=== PATIENT | female | born 1970 | race Caucasian/White ===

== ENCOUNTER 2018-01-23 07:42 | Emergency (ER) | payer BC, MEDICARE ==
[2018-01-23 07:59] VITALS: BP 148/83
--- NOTE | 2018-01-23 08:18 | UC ---
Complaint Female HPI - HPI Summary HPI Summary: DYSURIA X 1 DAY STARTED LAST NIGHT , FEEL LIKE URINATING RAZOR BLADE + LOWE ABDOMINAL PAIN , + CHILLS, NO FEVER, + NAUSEA - History Of Current Complaint Chief Complaint: UCGU Stated Complaint: URINARY Time Seen by Provider: 01/23/18 07:59 Hx Obtained From: Patient Hx Last Menstrual Period: 1999 Onset/Duration: Gradual Onset, Lasting Days - 1, Still Present Timing: Constant Severity Initially: Moderate Severity Currently: Severe Pain Intensity: 5 Character: Sharp, Burning Aggravating Factor(s): Urination Alleviating Factor(s): Nothing Associated Signs And Symptoms: Positive: Nausea. Negative: Fever, Back Pain, Vaginal Bleeding/Discharge, Vaginal Discharge, Vomiting(# Of Episodes =), Genital Swelling, Genital Blisters, Retained Foregin Body (Specify) - Allergies/Home Medications Allergies/Adverse Reactions: Allergies Allergy/AdvReac Type Severity Reaction Status Date / Time pregabalin [From Lyrica] Allergy Intermediate Eyes shake Verified 01/23/18 07:51 Home Medications: Home Medications Lisinopril 5 mg PO DAILY 01/23/18 [History Confirmed 01/23/18] Omeprazole CAP* [Prilosec CAP* 20 MG] 20 mg PO BEDTIME 01/23/18 [History Confirmed 01/23/18] Oxycodone HCl/Acetaminophen [Percocet] 1 tab PO BEDTIME 01/23/18 [History Confirmed 01/23/18] PMH/Surg Hx/FS Hx/Imm Hx Endocrine History: Diabetes Cardiovascular History: Hypertension Respiratory History: Asthma - Surgical History Surgical History: Yes Surgery Procedure, Year, and Place: spinal fusion, hysterectomy; benign facial gland 2010. [employer], gastric sleeve-01/2016 - Family History Known Family History: Positive: Unknown, Hypertension, Diabetes - Social History Alcohol Use: None Substance Use Type: None Smoking Status (MU): Former Smoker When Did the Patient Quit Smoking/Using Tobacco: 2004 - Immunization History Most Recent Influenza Vaccination: current Review of Systems Constitutional: Negative Skin: Negative Eyes: Negative ENT: Negative Respiratory: Negative Cardiovascular: Negative Gastrointestinal: Abdominal Pain, Nausea Genitourinary: Dysuria, Frequency Is Patient Immunocompromised?: No All Other Systems Reviewed And Are Negative: Yes Physical Exam Triage Information Reviewed: Yes Appearance: Well-Appearing, No Pain Distress, Well-Nourished Vital Signs: Initial Vital Signs Temp 98.5 F 01/23/18 07:54 Pulse 97 01/23/18 07:54 Resp 18 01/23/18 07:54 BP 148/83 01/23/18 07:54 Pulse Ox 99 01/23/18 07:54 Vital Signs Reviewed: Yes Eye Exam: Normal Eyes: Positive: Conjunctiva Clear ENT: Positive: Normal ENT inspection, Hearing grossly normal, Pharynx normal Neck: Positive: Supple, Nontender, No Lymphadenopathy Respiratory: Positive: Chest non-tender, Lungs clear, Normal breath sounds Cardiovascular: Positive: RRR, No Murmur, Pulses Normal Abdomen Description: Positive: Nontender, Soft. Negative: CVA Tenderness (R), CVA Tenderness (L), Distended, Guarding Bowel Sounds: Positive: Present Skin Exam: Normal Complaint Female Dx - Differential Dx/Diagnosis Provider Diagnoses: DYSURIA. KIDNEY STONES Discharge - Discharge Plan Condition: Stable Disposition: HOME Prescriptions: Ciprofloxacin TAB* [Cipro 500 MG TAB*] 500 mg PO BID #20 tab Tamsulosin HCl [Flomax] 0.4 mg PO DAILY #10 cap.er.24h Patient Education Materials: Kidney Stones (ED) Referrals: Ken Hernandez MD [Primary Care Provider] - 5 Days Additional Instructions: SYMPTOMS MOST LIKELY DUE TO PASSING A KIDNEY STONES AND NO BLADDER INFECTION WILL NOT GET A CT AT THIS TIME INCREASE FLUID, CIPRO TO PREVENT INFECTION PLEASE GO TO ED IF INCREASE IN ABDOMINAL PAIN , ANY FEVER, FLANK PAIN , VOMITING FOLLOW UP WITH YOUR PCP IN 5 TO 7 DAYS
== END 2018-01-23 08:21 | disposition home or self-care (01) ==
LOC: UCCORT 07:42
DX: R30.0 Dysuria (principal); N20.0 Calculus of kidney; Z87.891 Personal history of nicotine dependence; Z88.8 Allergy status to other drugs, medicaments and biological substances; E11.9 Type 2 diabetes mellitus without complications
CPT/HCPCS: 81003; 99212; G0463

== ENCOUNTER 2018-07-24 06:06 | Day surgery (SDC) | payer BC, MEDICARE ==
[~2018-07-24 06:06] MED LIST: Buffered Lidocaine 0.9% SYRIN* 5 ML/SYR SYRINGE INTRADERM ONE; Dexamethasone TAB* 4 MG PO ONE; DiMENhydriNATE IV* 50 MG/ML VIAL IV PUSH PRN; Famotidine IV* 10 MG/ML 2 ML (20 mg) IV ONE; Morphine INJ* 2 MG/ML 1 ML SYRINGE (TWO MG - NEW SYRINGE VERSION) IV PRN; Naloxone* 0.4 MG/ML 1 ML VIAL IV PRN; Ondansetron TAB* 4 MG PO ONE; PROCHLORPERAZINE INJ 5 MG/ML 2 ML VIAL IV PRN; oxyCODONE/Acetamin 5/325 MG* TAB PO PRN
[2018-07-24] MEDS ORDERED: Heparin VIAL(*) 5000 UNITS/ML VIAL (FIVE THOUSAND) ONE (06:16)
[2018-07-24] MEDS ORDERED: Famotidine IV* 10 MG/ML 2 ML (20 mg) ONE (06:16)
[2018-07-24] MEDS ORDERED: Ondansetron ODT TAB* 4 MG ONE (06:16)
[2018-07-24] MEDS ORDERED: Scopolamine 1.5 mg* PATCH ONE ×2 (06:17→06:39)
[2018-07-24] MEDS ORDERED: Dexamethasone TAB* 4 MG ONE (06:17)
[2018-07-24] MEDS ORDERED: ceFAZolin 2 GM in NS PREMIX(*) 2 GM/100 ML BAG IVPB ONE (06:17)
[2018-07-24] MEDS ORDERED: ceFAZolin 1 GM VIAL(*) ONE (06:51)
[2018-07-24] MEDS ORDERED: Gentamicin ADULT (*) 40 MG/ML VIAL ONE (06:51)
[2018-07-24] MEDS ORDERED: Bacitracin IV* 50,000 UNITS INJ ONE (06:52)
[2018-07-24] MEDS ORDERED: Scopolamine 1.5 mg* PATCH TRANSDERM SCH (07:00)
[2018-07-24] MEDS ORDERED: KETAMINE HCL* 50 MG/ML 10 ML VIAL ONE (07:22)
[2018-07-24] MEDS ORDERED: Midazolam* 1 MG/ML 5 ML VIAL (5 MG) ONE (07:22)
[2018-07-24] MEDS ORDERED: fentaNYL* 50 MCG/ML 2 ML VIAL (100 MCG VIAL) ONE ×3 (07:22→12:04)
[2018-07-24] MEDS ORDERED: Morphine VIAL* 10 MG/ML 1 ML VIAL ONE (07:52)
[2018-07-24] MEDS ORDERED: Povidone Iodine 5% OPTH* 30 ML BTL ONE ×2 (07:54→08:42)
[2018-07-24] MEDS ORDERED: Propofol* 10 MG/ML 20 ML BTL IV PUSH ONE (11:09)
[2018-07-24] MEDS ORDERED: Lidocaine 2% PF * 5 ML VIAL ONE ×2 (11:09→11:58)
[2018-07-24] MEDS ORDERED: PROCHLORPERAZINE INJ 5 MG/ML 2 ML VIAL ONE ×2 (11:09→13:10)
[2018-07-24] MEDS: fentaNYL* 50 MCG/ML 2 ML VIAL (100 MCG VIAL) IV PRN ×3 (12:06→12:46)
[2018-07-24] MEDS ORDERED: oxyCODONE/Acetamin 5/325 MG* TAB ONE (12:48)
[2018-07-24 13:36] VITALS: BP 135/80
== END 2018-07-24 14:08 | disposition home or self-care (01) ==
LOC: OR 06:06
PROVIDERS: ATTEND Plastic Surgery
DX: Z41.1 Encounter for cosmetic surgery (principal); N64.81 Ptosis of breast; E11.9 Type 2 diabetes mellitus without complications; I10 Essential (primary) hypertension; J45.909 Unspecified asthma, uncomplicated; Z86.718 Personal history of other venous thrombosis and embolism; Z87.891 Personal history of nicotine dependence; E78.5 Hyperlipidemia, unspecified
CPT/HCPCS: A9270-GY; C1789; J0690; J0780; J1580; J1644; J2250; J2270; J2704; J3010; J8540

== ENCOUNTER 2019-02-07 07:04 | Emergency (ER) | payer BC, MEDICARE ==
--- OUTSIDE RECORDS SUMMARY | 2019-02-07 07:13 | XMS REPORT | Continuity of Care Document ---
:1970 External Reference #:[id number] Author Name Ken Hernandez M.D. Address [address] [facility] [address] [place] [address] Care Team Providers Name Role Phone Ken Hernandez M.D. 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 [address] [place] [address] Advance Directives Description No Information Available Problems Date Description Provider Status Onset: 10/14/2015 Essential hypertension Ken Hernandez M.D. Active Onset: 10/14/2015 Atopic dermatitis Ken Hernandez M.D. Active Onset: 10/14/2015 Degeneration of lumbosacral Ken Hernandez M.D. Active intervertebral disc Onset: 10/14/2015 Allergic rhinitis Ken Hernandez M.D. Active Onset: 10/14/2015 Low back pain Ken Hernandez M.D. Active Onset: 10/14/2015 Gastroesophageal reflux disease Ken Hernandez M.D. Active Onset: 10/14/2015 Mixed hyperlipidemia Ken Hernandez M.D. Active Onset: 10/14/2015 Asthma without status asthmaticus Ken Hernandez M.D. Active Onset: 10/14/2015 Indigestion Ken Hernandez M.D. Active Onset: 10/14/2015 Type II diabetes mellitus uncontrolled Ken Hernandez M.D. Active Family History Date Family Member(s) Observation Comments Father due to Suicide () - AGE 52 Mother 67 Mother Colon Cancer First Daughter 28 First Daughter No Current Problems Second Daughter 20 Second Daughter No Current Problems First Brother 44 First Brother No Current Problems Second Brother 47 Second Brother No Current Problems Third Brother 48 Third Brother Skin Cancer Social History Type Date Description Comments Sex Unknown Marital Status Legal Status: ETOH Use Denies alcohol use Tobacco Use Start: Unknown End: Unknown Patient is a former smoker Smoking Status Reviewed: 08/12/17 Patient is a former smoker Allergies, Adverse Reactions, Alerts Date Description Reaction Status Severity Comments 10/14/2015 Lyrica Active 10/14/2015 Metformin Active Medications Medication Date Status Form Strength Qnty SIG Indications Ordering Provider Tamiflu 12/29/ Active Capsules 75mg 10caps 1 tab by J11.89 David2018 mouth Ken Chavez, twice a M.D. day x 5 days Proair HFA 12/29/ Active Aerosol 108(90Base 17gm inhale 2 R06.02 David, 2018 ) mcg/Act puffs by Ken Chavez, mouth M.D. every 4 hours if needed Azithromycin 12/29/ Active Tablets 500mg 10tabs 1 tab by J18.0 David2018 mouth Ken Chavez, every day M.D. x 10 days Lisinopril 10/01/ Active Tablets 5mg 90tabs 1 by I10 David, 2016 mouth Ken Chavez, every day M.D. Womens Daily 12/16/ Active Tablets 90tabs 1 by Z98.84 David, Formula/Folic 2015 mouth Ken Chavez, Acid/Calcium/Ir every day M.D. on Freestyle Lite 09/17/ Active Strips 100uni Use E11.65 David, Glucose Test 2015 ts bid-tid Ken Chavez, Strips M.D. Omeprazole 06/04/ Active Capsules 20mg 90caps take 1 K21.0 David, 2015 capsule Ken Chavez, by mouth M.D. every day Oxycodone-Aceta 01/11/ Active Tablets 10-325mg 90tabs 1 tab by M79.605 David minophen 2015 mouth Ken Chavez, three M.D. times a day as needed M51.37 M54.5 Cipro 08/28/20 Hx Tablets 500mg 20tabs 1 tab by mouth Ken Hernandez 18 - twice a day M., M.D. 09/07/20 18 Azithromycin 04/04/20 Hx Tablets 500mg 5tabs 1 tab by mouth E11.65 Ken Hernandez 18 - every day M., M.D. 04/09/20 18 Azithromycin 12/10/19 Hx Tablets 500mg 5tabs 1 tab by mouth E11.65 Ken Hernandez 18 - every day M., M.D. 12/14/19 18 Azithromycin 05/29/20 Hx Tablets 500mg 5tabs 1 tab by mouth E11.65 Ken Hernandez 17 - every day M., M.D. 06/02/20 17 Amoxicillin 02/06/20 Hx Tablets 500mg 40tabs 2 by mouth twice Ken eHrnandez 17 - a day M., M.D. 02/15/20 17 Azithromycin 12/12/19 Hx Tablets 250mg 6tabs take two tablets J01.80 Ken Hernandez 17 - by mouth as one M., M.D. 12/17/19 dose on the first 17 day then take one daily thereafter x 4 days Omeprazole 06/04/20 Hx Capsules 20mg 180caps 1 by mouth every K30 Ken Hernandez 16 - day M., M.D. 06/04/20 16 K21.0 Fusion 02/17/2016 - Hx Packet 7-0.25-50-5mg 1 by Z98.84 [facility] Sprinkles 09/17/2016 mouth Ahmad M., every day M.D. Doxycycline 01/12/2016 - Hx Capsules 100mg 20ca 1 cap by David, Hyclate 01/22/2016 ps mouth Ahmad M., twice a M.D. day Amoxicillin 11/24/2015 - Hx Tablets 500mg 40ta 2 by [facility], 12/04/2015 bs mouth Ahmad M., twice a M.D. day Vitamin D3 10/24/2015 - Hx Capsules 1000Unit 90ca 1 by E55.9 [facility], 02/17/2016 ps mouth Ahmad M., every day M.D. Phentermine HCL 10/24/2015 - Hx Capsules 30mg 30ca 1 by E66.01 [facility], 11/24/2015 ps mouth Ahmad M., every day M.D. R53.83 Novolog Mix 10/14/2015 - Hx Supn (70-30)100Unit/ML 30ml 20U SQ In E11.65 Daivd, 70/30 02/17/2016 Am And 10 Ahmad Prefilled U SQ In PM Jeffrey Chavez M.D. Novolog Flex 10/14/2015 - Hx 100uni use as E11.65 David, Pen [place] 02/17/2016 ts directed ( Ahmad 31 G) Pamela Chavez Omeprazole - Hx Capsules 20mg 180cap 1 by mouth K30 [facility], 06/04/2016 DR calles every day Ken Chavez M.D. K21.0 Lisinopril - 02/17/2016 Hx Tablets 10mg 1 by mouth every day I10 Unknown E11.65 Oxycodone-Acetaminophen - Hx Tablets 10-325mg take 1-2 M79.605 Unknown 01/12/2016 tablets four times a day M51.37 M54.5 Lidocaine-Prilocaine - Hx Cream 2.5-2.5% L81.8 Unknown 02/10/2016 Bydureon - Hx Pen 2mg Unknown 10/11/2015 Tramadol HCL - Hx Tablets 50mg take 1 Unknown 10/11/2015 tablet by mouth every 4 to 6 hours if needed for pain Phentermine HCL - Hx Tablets 37.5mg Unknown 10/11/2015 Omeprazole - Hx Capsules DR 40mg take 1 Unknown 10/11/2015 capsule once daily Cyclobenzaprine HCL - Hx Tablets 5mg take 1 to Unknown 10/11/2015 2 tablets three times a day (DO Not Drive For AT Least 3 Crystal Naproxen - Hx Tablets 375mg take 1 Unknown 10/11/2015 tablet three times a day if needed for pain -Take With Food Azithromycin - Hx Tablets 250mg take 2 Unknown 10/11/2015 tablets on day 1 then 1 tablet on days 2 through 5 Januvia - Hx Tablets 100mg take 1 Unknown 10/11/2015 tablet by mouth once daily Victoza - Hx Solution 18mg/3ML Unknown 10/11/2015 Pen-Inject Immunizations CPT Code Status Date Vaccine Lot # [id number] Given 07/25/2017 Flu Vaccine [id number] Vital Signs Date Vital Result Comment 01/22/2019 12:00pm BP Systolic 118 mmHg BP Diastolic 70 mmHg Height 60 inches 5'0" Weight 176.00 lb BMI (Body Mass Index) 34.4 kg/m2 Heart Rate 93 /min Respiratory Rate 16 /min 12/29/2018 11:27am BP Systolic 134 mmHg BP Diastolic 72 mmHg Height 60 inches 5'0" Weight 177.00 lb BMI (Body Mass Index) 34.6 kg/m2 Heart Rate 102 /min Body Temperature 98.4 F Respiratory Rate 16 /min 12/09/2018 9:52am BP Systolic 124 mmHg BP Diastolic 72 mmHg Height 60 inches 5'0" Weight 173.00 lb BMI (Body Mass Index) 33.8 kg/m2 Heart Rate 108 /min Respiratory Rate 16 /min 10/30/2018 9:00am BP Systolic 126 mmHg BP Diastolic 70 mmHg Height 60 inches 5'0" Weight 174.00 lb BMI (Body Mass Index) 34.0 kg/m2 Heart Rate 94 /min Respiratory Rate 16 /min 09/30/2018 9:30am BP Systolic 110 mmHg BP Diastolic 64 mmHg Height 60 inches 5'0" Weight 170.00 lb BMI (Body Mass Index) 33.2 kg/m2 Heart Rate 89 /min Respiratory Rate 16 /min 08/28/2018 2:42pm BP Systolic 134 mmHg BP Diastolic 82 mmHg Height 60 inches 5'0" Weight 168.00 lb BMI (Body Mass Index) 32.8 kg/m2 Heart Rate 106 /min Respiratory Rate 16 /min 07/29/2018 1:05pm BP Systolic 132 mmHg BP Diastolic 72 mmHg Height 60 inches 5'0" Weight 170.00 lb BMI (Body Mass Index) 33.2 kg/m2 Heart Rate 95 /min Respiratory Rate 16 /min 07/04/2018 8:55am BP Systolic 118 mmHg BP Diastolic 78 mmHg Height 60 inches 5'0" Weight 166.00 lb BMI (Body Mass Index) 32.4 kg/m2 Heart Rate 95 /min Respiratory Rate 16 /min 06/19/2018 8:49am BP Systolic 124 mmHg BP Diastolic 64 mmHg Height 60 inches 5'0" Weight 167.00 lb BMI (Body Mass Index) 32.6 kg/m2 Heart Rate 119 /min Respiratory Rate 16 /min 06/11/2018 8:21am BP Systolic 112 mmHg BP Diastolic 72 mmHg Height 60 inches 5'0" Weight 168.00 lb BMI (Body Mass Index) 32.8 kg/m2 Heart Rate 104 /min Respiratory Rate 16 /min 05/21/2018 8:07am BP Systolic 118 mmHg BP Diastolic 68 mmHg Height 60 inches 5'0" Weight 167.00 lb BMI (Body Mass Index) 32.6 kg/m2 Heart Rate 94 /min Respiratory Rate 16 /min 04/14/2018 10:47am BP Systolic 162 mmHg BP Diastolic 82 mmHg Height 60 inches 5'0" Weight 171.00 lb BMI (Body Mass Index) 33.4 kg/m2 Heart Rate 92 /min Respiratory Rate 18 /min 04/04/2018 10:10am BP Systolic 124 mmHg BP Diastolic 72 mmHg Height 60 inches 5'0" Weight 169.00 lb BMI (Body Mass Index) 33.0 kg/m2 Heart Rate 96 /min Body Temperature 98.0 F Respiratory Rate 18 /min 03/13/2018 1:57pm BP Systolic 110 mmHg BP Diastolic 72 mmHg Height 60 inches 5'0" Weight 168.00 lb BMI (Body Mass Index) 32.8 kg/m2 Heart Rate 87 /min Respiratory Rate 18 /min 02/11/2018 1:00pm BP Systolic 116 mmHg BP Diastolic 68 mmHg Height 60 inches 5'0" Weight 168.00 lb BMI (Body Mass Index) 32.8 kg/m2 Heart Rate 88 /min Respiratory Rate 18 /min 01/09/2018 2:06pm BP Systolic 120 mmHg BP Diastolic 70 mmHg Height 60 inches 5'0" Weight 172.00 lb BMI (Body Mass Index) 33.6 kg/m2 Heart Rate 94 /min Respiratory Rate 18 /min 12/10/2017 9:02am BP Systolic 120 mmHg BP Diastolic 74 mmHg Height 60 inches 5'0" Weight 174.00 lb BMI (Body Mass Index) 34.0 kg/m2 Heart Rate 101 /min Body Temperature 97.7 F Respiratory Rate 18 /min 11/07/2017 10:20am BP Systolic 126 mmHg BP Diastolic 70 mmHg Height 60 inches 5'0" Weight 170.00 lb BMI (Body Mass Index) 33.2 kg/m2 Heart Rate 106 /min 10/10/2017 8:57am BP Systolic 110 mmHg BP Diastolic 72 mmHg Height 60 inches 5'0" Weight 172.00 lb BMI (Body Mass Index) 33.6 kg/m2 Heart Rate 88 /min Respiratory Rate 16 /min 10/01/2017 2:04pm BP Systolic 160 mmHg BP Diastolic 100 mmHg BP Systolic Recheck 138 mmHg BP Diastolic Recheck 88 mmHg Height 60 inches 5'0" Weight 175.00 lb BMI (Body Mass Index) 34.2 kg/m2 Heart Rate 106 /min Respiratory Rate 18 /min 09/26/2017 8:39am BP Systolic 118 mmHg BP Diastolic 68 mmHg Height 60 inches 5'0" Weight 175.00 lb BMI (Body Mass Index) 34.2 kg/m2 Heart Rate 97 /min Respiratory Rate 18 /min 09/05/2017 10:33am BP Systolic 124 mmHg BP Diastolic 88 mmHg Height 60 inches 5'0" Weight 173.00 lb BMI (Body Mass Index) 33.8 kg/m2 Heart Rate 97 /min Respiratory Rate 18 /min 08/12/2017 8:53am BP Systolic 124 mmHg BP Diastolic 72 mmHg Height 60 inches 5'0" Weight 171.00 lb BMI (Body Mass Index) 33.4 kg/m2 Heart Rate 96 /min Respiratory Rate 16 /min 07/25/2017 8:46am BP Systolic 110 mmHg BP Diastolic 68 mmHg Height 60 inches 5'0" Weight 172.00 lb BMI (Body Mass Index) 33.6 kg/m2 Heart Rate 73 /min Respiratory Rate 16 /min 07/11/2017 3:21pm BP Systolic 126 mmHg BP Diastolic 70 mmHg Height 60 inches 5'0" Weight 175.00 lb BMI (Body Mass Index) 34.2 kg/m2 Heart Rate 105 /min Respiratory Rate 18 /min 06/27/2017 9:44am BP Systolic 118 mmHg BP Diastolic 68 mmHg Height 60 inches 5'0" Weight 172.00 lb BMI (Body Mass Index) 33.6 kg/m2 Heart Rate 99 /min Respiratory Rate 16 /min 06/13/2017 9:46am BP Systolic 128 mmHg BP Diastolic 68 mmHg Height 60 inches 5'0" Weight 176.00 lb BMI (Body Mass Index) 34.4 kg/m2 Heart Rate 99 /min Respiratory Rate 16 /min 05/29/2017 1:59pm BP Systolic 104 mmHg BP Diastolic 60 mmHg Height 60 inches 5'0" Weight 174.00 lb BMI (Body Mass Index) 34.0 kg/m2 Heart Rate 70 /min Body Temperature 97.4 F Respiratory Rate 16 /min 05/15/2017 9:42am BP Systolic 118 mmHg BP Diastolic 70 mmHg Height 60 inches 5'0" Weight 176.00 lb BMI (Body Mass Index) 34.4 kg/m2 Heart Rate 89 /min Respiratory Rate 16 /min 04/29/2017 3:11pm BP Systolic 116 mmHg BP Diastolic 64 mmHg Height 60 inches 5'0" Weight 174.00 lb BMI (Body Mass Index) 34.0 kg/m2 Heart Rate 104 /min Respiratory Rate 16 /min 03/12/2017 8:53am BP Systolic 122 mmHg BP Diastolic 64 mmHg Height 60 inches 5'0" Weight 172.00 lb BMI (Body Mass Index) 33.6 kg/m2 Heart Rate 92 /min Respiratory Rate 18 /min 02/20/2017 9:05am BP Systolic 118 mmHg BP Diastolic 72 mmHg Height 60 inches 5'0" Weight 171.00 lb BMI (Body Mass Index) 33.4 kg/m2 Heart Rate 88 /min Respiratory Rate 18 /min 02/05/2017 3:13pm BP Systolic 126 mmHg BP Diastolic 78 mmHg Height 60 inches 5'0" Weight 169.00 lb BMI (Body Mass Index) 33.0 kg/m2 Heart Rate 128 /min Body Temperature 97.4 F Respiratory Rate 18 /min 01/25/2017 1:53pm BP Systolic 124 mmHg BP Diastolic 78 mmHg Height 60 inches 5'0" Weight 172.00 lb BMI (Body Mass Index) 33.6 kg/m2 Heart Rate 102 /min Respiratory Rate 16 /min 12/12/2016 9:59am BP Systolic 118 mmHg BP Diastolic 82 mmHg Height 60 inches 5'0" Weight 168.00 lb BMI (Body Mass Index) 32.8 kg/m2 Heart Rate 100 /min Respiratory Rate 16 /min 10/26/2016 9:58am BP Systolic 134 mmHg BP Diastolic 84 mmHg Height 60 inches 5'0" Weight 167.00 lb BMI (Body Mass Index) 32.6 kg/m2 Heart Rate 105 /min Respiratory Rate 20 /min 09/24/2016 8:49am BP Systolic 128 mmHg BP Diastolic 72 mmHg Height 60 inches 5'0" Weight 164.00 lb BMI (Body Mass Index) 32.0 kg/m2 Heart Rate 105 /min Respiratory Rate 18 /min 09/17/2016 9:45am BP Systolic 118 mmHg BP Diastolic 78 mmHg Height 60 inches 5'0" Weight 162.00 lb BMI (Body Mass Index) 31.6 kg/m2 Heart Rate 87 /min Respiratory Rate 18 /min 08/02/2016 2:42pm BP Systolic 106 mmHg BP Diastolic 68 mmHg Height 60 inches 5'0" Weight 159.00 lb BMI (Body Mass Index) 31.0 kg/m2 Heart Rate 97 /min Respiratory Rate 22 /min 06/21/2016 11:31am BP Systolic 118 mmHg BP Diastolic 66 mmHg Height 60 inches 5'0" Weight 162.00 lb BMI (Body Mass Index) 31.6 kg/m2 Heart Rate 82 /min Respiratory Rate 20 /min 05/08/2016 3:07pm BP Systolic 118 mmHg BP Diastolic 64 mmHg Height 60 inches 5'0" Weight 158.00 lb BMI (Body Mass Index) 30.9 kg/m2 Heart Rate 72 /min Respiratory Rate 18 /min 03/20/2016 2:26pm BP Systolic 110 mmHg BP Diastolic 72 mmHg Height 60 inches 5'0" Weight 157.00 lb BMI (Body Mass Index) 30.7 kg/m2 Heart Rate 74 /min Respiratory Rate 20 /min 02/17/2016 9:07am BP Systolic 100 mmHg BP Diastolic 69 mmHg Height 60 inches 5'0" Weight 163.00 lb BMI (Body Mass Index) 31.8 kg/m2 Heart Rate 90 /min Respiratory Rate 18 /min 01/12/2016 1:55pm BP Systolic 136 mmHg BP Diastolic 85 mmHg Height 60 inches 5'0" Weight 186.00 lb BMI (Body Mass Index) 36.3 kg/m2 Heart Rate 104 /min Body Temperature 97.3 F Respiratory Rate 18 /min 11/24/2015 9:00am BP Systolic 125 mmHg BP Diastolic 81 mmHg Height 60 inches 5'0" Weight 183.00 lb BMI (Body Mass Index) 35.7 kg/m2 Heart Rate 109 /min Respiratory Rate 18 /min 10/24/2015 9:39am BP Systolic 127 mmHg BP Diastolic 80 mmHg Height 60 inches 5'0" Weight 184.00 lb BMI (Body Mass Index) 35.9 kg/m2 Heart Rate 91 /min Respiratory Rate 18 /min 10/17/2015 8:49am BP Systolic 130 mmHg BP Diastolic 82 mmHg Height 60 inches 5'0" Weight 185.00 lb BMI (Body Mass Index) 36.1 kg/m2 Heart Rate 101 /min Respiratory Rate 18 /min 10/14/2015 9:44am BP Systolic 141 mmHg BP Diastolic 96 mmHg Height 60 inches 5'0" Weight 184.00 lb BMI (Body Mass Index) 35.9 kg/m2 Heart Rate 94 /min Body Temperature 97.1 F Respiratory Rate 18 /min Results Test Date Facility Test Result H/L Range Note Blood Culture 12/29/2018 [facility] Blood Culture NO GROWTH: FINAL 1, 2 Aerobic <SEE NOTE> Blood Culture Anaerobic NO GROWTH: FINAL <SEE NOTE> 3 Influenza A/B 12/29/2018 [facility] Influenza A POSITIVE Abnormal (Negative ) Antigen Antigen Influenza B Antigen Negative (Negative) 4 Comprehensive Metabolic Panel 12/29/2018 [facility] Glucose 131 mg/dL High 74-106 BUN 6 mg/dL Low 7-18 Creatinine 0.9 mg/dL N 0.6-1.3 Glom Filtration Rate, Estimate >60 mL/min >60 If >60 mL/min >60 5 BUN/Creat 6.6 ratio Sodium 137 mmol/L N 136-145 Potassium 3.8 mmol/L N 3.5-5.1 Chloride 101 mmol/L N 98-107 Carbon Dioxide 25 mmol/L N 21-32 Anion Gap 11 mEq/L N 8-16 Calcium 8.9 mg/dL N 8.5-10.1 Total Protein 7.8 g/dL N 6.4-8.2 Albumin 4.1 g/dL N 3.4-5.0 Globulin 3.7 g/dL N 1.9-4.3 Alb/Glob 1.1 ratio Bilirubin,Total 0.3 mg/dL N 0.2-1.0 Sgot/Ast 27 U/L N 15-37 SGPT/Alt 34 U/L N 12-78 Alkaline Phosphatase 104 U/L N 45-117 Lactic Acid 12/29/2018 [facility] Lactic Acid 1.4 mmol/L N 0.4-1.9 Lab Reflex >2.0 for Sepsis? Y Blood Culture 12/29/2018 [facility] Blood Culture Aerobic NO GROWTH: FINAL < SEE 6 NOTE> Blood Culture Anaerobic NO GROWTH: FINAL <SEE NOTE> 7 Laboratory test 07/24/2018 [facility] Point of Care 109 mg/dL High 70 -100 8 finding Glucose CBC With Diff 07/04/2018 [facility] WBC 7.6 10*3/uL (4.1-11.0) [address] [facility] [facility] (607)- - RBC 4.24 10*6/uL (4.00-5.40) HGB 13.4 g/dL (12.0-16.0) HCT 40.5 % (36.0-47.0) MCV 95.6 fL High (80.0-95.0) MCH 31.7 pg (27.0-32.0) MCHC 33.1 g/dL (32.0-36.0) RDW 12.8 % (10.5-14.5) PLT 240 10*3/uL (150-450) MPV 8.4 fL (7.1-10.7) Neut % 56.5 % (35.0-75.0) Lymph % 36.1 % (16.0-52.0) Price % 5.5 % (0.0-8.0) Eos % 1.2 % (0.0-5.0) Baso % 0.7 % (0.0-4.0) Neut # 4.3 10*3/uL (1.8-7.7) Lymph # 2.7 10*3/uL (1.2-4.8) Price # 0.4 10*3/uL (0.0-0.8) Eos # 0.1 10*3/uL (0.0-0.5) Baso # 0.1 10*3/uL (0.0-0.2) CMP 07/04/2018 [facility] Sodium 139 mmol/L (136-145) [address] [facility] (601)- - Potassium 4.1 mmol/L (3.6-5.2) Chloride 104 mmol/L (100-108) Co2 27 mmol/L (22-31) Anion Gap 8 mmol/L (7-16) Urea Nitrogen 10 mg/dL (7-24) Creatinine 0.87 mg/dL (0.60-1.00) BUN/Creat Ratio 11.5 RATIO (10.0-20.0) Glucose 104 mg/dL High (70-99) Calcium 9.0 mg/dL (8.4-10.2) Total Protein 7.0 g/dL (6.4-8.2) Albumin 4.1 g/dL (3.5-4.6) Globulin 2.9 g/dL (2.7-4.3) Alb/Glob Ratio 1.4 RATIO Alkaline Phosphatase 69 U/L (45-117) Bilirubin,Total 0.6 mg/dL (0.0-1.0) Ast (Sgot) 11 U/L (11-39) Alt (SGPT) 16 U/L (12-78) GFR >60 ml/min/1.73m2 (>59) GFR ( Amer) >60 ml/min/1.73m2 (>59) GFR Interpretation <SEE NOTE> 9 Hemoglobin A1c 07/04/2018 [facility] Hemoglobin A1c @ 6.4 % High (4.0- 6.0) 10 [address] (822)- - Est Average Glucose 137 mg/dL [place] Urine Albumin @ 07/04/2018 [facility] Albumin, Urine 1.03 mg/dL [address] (381)- - Creatinine,Urine 239.00 mg/dL Alb/Creatinine Ratio 4.3 ug/mg (0.0-29.9) Lipid 07/04/2018 [facility] Cholesterol @ 204 mg/dL High (0-200) [address] [facility] (607)- - Triglyceride @ 250 mg/dL High (30-200) HDL Cholesterol @ 40 mg/dL Low (>40) 11 Chol/HDL Ratio 5.1 RATIO 12 LDL Chol (Calc) 114 mg/dL (<130) 13 Laboratory 07/04/2018 [facility] TSH,Ultrasensitive @ 0.692 (0.360- 4.170) test finding 113 [facility] GARCIA mIU/L (607)- - Folate @ 10.9 ng/mL (3.1-17.5) Vitamin B12 @ 372 pg/mL (193-986) Antidepressants Panel 07/04/2018 [facility] Amitriptyline Negative ng/mL N 20 14 By LC/MS/MS Clomipramine Negative ng/mL N 20 Desipramine Negative ng/mL N 20 Doxepin Negative ng/mL N 20 Fluoxetine Negative ng/mL N 20 Imipramine Negative ng/mL N 20 Norclomipramine Negative ng/mL N 20 Nordoxepin Negative ng/mL N 20 Nortriptyline Negative ng/mL N 20 Sertraline Negative ng/mL N 20 Trimipramine Negative ng/mL N 20 15 Urine DRG SCR 07/04/2018 [facility] Amphetamine NEGATIVE N 1000 (12PNL-PM) Barbiturate NEGATIVE N 200 Benzodiazepine NEGATIVE N 200 Buprenorphine NEGATIVE N 15 Cannabinoid NEGATIVE N 50 Cocaine NEGATIVE N 300 Methadone NEGATIVE N 300 Opiate POSITIVE Abnormal 300 Oxycodone POSITIVE Abnormal 300 Phencyclidine NEGATIVE N 25 16 Barbiturates Panel By 07/04/2018 [facility] Butalbital Negative ng/mL N 100 LC/MS/MS Pentobarbital Negative ng/mL N 100 Phenobarbital Negative ng/mL N 100 Secobarbital Negative ng/mL N 100 17 Benzodiazepines 07/04/2018 [facility] 2-Hydroxyethylflurazepam Negative N 10 Panel By LC/MS/MS ng/mL 7-Aminoclonazepam Negative ng/mL N 10 Alprazolam Negative ng/mL N 10 Chlordiazepoxide Negative ng/mL N 10 Clonazepam Negative ng/mL N 10 Desalkylflurazepam Negative ng/mL N 10 Diazepam Negative ng/mL N 10 Lorazepam Negative ng/mL N 10 Midazolam Negative ng/ml N 10 Nordiazepam Negative ng/mL N 10 Alpha-hydroxyalprazolam Negative ng/mL N 10 Alpha-Hydroxymidazolam Negative ng/mL N 10 Alpha-Hydroxytriazolam Negative ng/mL N 10 Oxazepam Negative ng/mL N 10 Prazepam Negative ng/mL N 10 Temazepam Negative ng/mL N 10 18 Buprenorphine Panel By 07/04/2018 [facility] Buprenorphine Negative ng/mL N 5 LC/MS/MS Naloxone Negative ng/mL N 10 Norbuprenorphine Negative ng/mL N 5 19 Methadone Panel By 07/04/2018 [facility] Eddp Negative ng/mL N 10 LC/MS/MS Methadone Negative ng/mL N 10 20 Opiates Panel By 07/04/2018 [facility] 6-Joselyn (Heroin Negative ng/ mL N 5 LC/MS/MS Metabolite) Codeine Negative ng/mL N 50 Hydrocodone Negative ng/mL N 50 Hydromorphone Negative ng/mL N 50 Morphine Negative ng/mL N 50 Norhydrocodone Negative ng/mL N 50 Noroxycodone 1326 Positive Co <SEE NOTE> ng/mL N 50 21 Noroxymorphone 397 Positive Con <SEE NOTE> ng/mL N 50 22 Oxycodone 1254 Positive Co <SEE NOTE> ng/mL N 50 23 Oxymorphone 1085 Positive Co <SEE NOTE> ng/mL N 50 24 Specimen Validity 07/04/2018 [facility] Creatinine, Urine 213 mg/ dL N >20 Panel Color YELLOW N Yellow pH 6.2 N 5.0-8.0 Specific [place] 1.026 N 1.001-1.035 25 Amphetamine Panel By 07/04/2018 [facility] Amphetamine Negative ng/mL N 50 LC/MS/MS Methamphetamine Negative ng/mL N 50 Mdma (Ecstasy) Negative ng/mL N 50 Mda Negative ng/ml N 50 Mdea Negative ng/mL N 50 26 Laboratory test 07/04/2018 [facility] Cocaine Panel By Negative ng/mL N 50 27 finding LC/MS/MS Tramadol Negative ng/mL N 5 28 [id number] Negative ng/mL N 5 29 Gabapentin Negative ng/mL N 100 30 Ethyl Glucuronide 07/04/2018 [facility] Ethyl Glucuronide Negative ng/mL N 500 PDF SEE IMAGE Urine Drug [place] 07/04/2018 [facility] [id number] < pending> Ethyl Glucuronide <pending> CBC Auto Diff 04/14/2018 [facility] White Blood Count 5.9 10^3/uL N 3.5-10.8 Red Blood Count 4.04 10^6/uL N 4.0-5.4 Hemoglobin 12.7 g/dL N 12.0-16.0 Hematocrit 38 % N 35-47 Mean Corpuscular Volume 94 fL N 80-97 Mean Corpuscular Hemoglobin 32 pg High 27-31 Mean Corpuscular HGB Conc 34 g/dL N 31-36 Red Cell Distribution Width 13 % N 10.5-15 Platelet Count 248 10^3/uL N 150-450 Mean Platelet Volume 8.3 um3 N 7.4-10.4 Abs Neutrophils 2.7 10^3/uL N 1.5-7.7 Abs Lymphocytes 2.7 10^3/uL N 1.0-4.8 Abs Monocytes 0.3 10^3/uL N 0-0.8 Abs Eosinophils 0.1 10^3/uL N 0-0.6 Abs Basophils 0 10^3/uL N 0-0.2 Abs Nucleated RBC 0 10^3/uL Granulocyte % 45.2 % N 38-83 Lymphocyte % 46.8 % N 25-47 Monocyte % 5.4 % N 0-7 Eosinophil % 1.9 % N 0-6 Basophil % 0.7 % N 0-2 Nucleated Red Blood Cells % 0.2 Comp Metabolic Panel 04/14/2018 [facility] Sodium 139 mmol/L N 139- 145 Potassium 4.1 mmol/L N 3.5-5.0 Chloride 105 mmol/L N 101-111 Co2 Carbon Dioxide 26 mmol/L N 22-32 Anion Gap 8 mmol/L N 2-11 Glucose 127 mg/dL High 70-100 Blood Urea Nitrogen 7 mg/dL N 6-24 Creatinine 0.81 mg/dL N 0.51-0.95 BUN/Creatinine Ratio 8.6 N 8-20 Calcium 9.5 mg/dL N 8.6-10.3 Total Protein 6.6 g/dL N 6.4-8.9 Albumin 4.3 g/dL N 3.2-5.2 Globulin 2.3 g/dL N 2-4 Albumin/Globulin Ratio 1.9 N 1-3 Total Bilirubin 0.40 mg/dL N 0.2-1.0 Alkaline Phosphatase 59 U/L N 34-104 Alt 12 U/L N 7-52 Ast 16 U/L N 13-39 Egfr Non- 75.5 >60 Egfr 97.1 >60 31 Laboratory test 04/14/2018 [facility] Hemoglobin A1c 6.1 % High 4.0- 5.6 32 finding (Glyco HGB) TSH (Thyroid Stim Horm) 0.33 mcIU/mL Low 0.34-5.60 33 Lipid Profile 04/14/2018 [facility] Triglycerides 295 mg/dL 34 (Trig/Chol/HDL) Cholesterol 204 mg/dL 35 HDL Cholesterol 37.6 mg/dL 36 LDL Cholesterol 107 mg/dL 37 Laboratory test finding 04/14/2018 [facility] Vitamin B12 329 pg/mL N 180-914 38 Vitamin D Total 25(Oh) 33.4 ng/mL N 20-50 39 Uric Acid 5.6 mg/dL N 2.3-6.6 40 Ua RFX Micro & Culture II 03/04/2018 [facility] Urine Color YELLOW Yellow 41 Urine Clarity CLEAR Clear Urine Glucose - Dipstick NEGATIVE mg/dL Negative Urine Bilirubin - Dipstick NEGATIVE Negative Urine Ketone NEGATIVE mg/dL Negative Urine Specific [place] 1.015 N 1.010-1.030 Urine Blood NEGATIVE Negative Urine PH 7.5 N 6.5-7.5 Urine Protein - Dipstick NEGATIVE mg/dL Negative Urine Urobilinogen - Dipstick 0.2 E.U./dL N 0.2-1.0 Urine Nitrite - Dipstick NEGATIVE Negative Urine Leuk Esterase NEGATIVE Negative Source: URINE, CLEAN CAT <SEE NOTE> 42 Basic Metabolic Panel 03/04/2018 [place] Glucose 157 mg/dL High 74-106 BUN 7 mg/dL N 7-18 Creatinine 0.8 mg/dL N 0.6-1.3 Glom Filtration Rate, Estimate >60 mL/min >60 If >60 mL/min >60 43 BUN/Creat 8.7 ratio Sodium 138 mmol/L N 136-145 Potassium 4.0 mmol/L N 3.5-5.1 Chloride 105 mmol/L N 98-107 Carbon Dioxide 22 mmol/L N 21-32 Anion Gap 11 mEq/L N 8-16 Calcium 9.3 mg/dL N 8.5-10.1 Poc Urinalysis 01/23/2018 [facility] Poc Glucose, Urine Negative Negative Poc Bilirubin, Urine 1+ Abnormal Negative Poc Ketone, Urine Negative Negative Poc Specific [place], Urine >=1.030 N 1.010-1.030 Poc Blood, Urine 3+ Abnormal Negative Poc pH, Urine 5.5 N 5-9 Poc Protein, Urine 2+ Abnormal Negative Poc Urobilinogen, Urine 0.2 Negative Poc Nitrite, Urine Negative Negative Poc Leukocytes, Urine Negative Negative Poc Color, Urine Nhung Poc Clarity, Urine Cloudy 44 CBS W/Automated Diff 10/21/2017 [place] White Blood Count 8.9 K/uL N 3.1 -10.7 45 Red Blood Count 4.40 M/uL N 3.90-5.40 Hemoglobin 14.0 gm/dL N 11.6-15.8 Hematocrit 40.7 % N 36.0-46.1 Mean Cell Volume 92.5 fl N 80.9-99.0 Mean Corpuscular HGB 31.8 pg N 25.9-32.7 Mean Corpuscular HGB Conc 34.4 g/dL High 30.8-34.3 Platelet Count 266 K/uL N 155-360 Red Cell Distri Width SD 39.8 fl N 3-47 Red Cell Distri Width %CV 11.9 % N 11.7-14.4 Mean Platelet Volume 9.9 fL N 8.9-12.4 Neut% 40.4 % N 40.4-72.8 Lymph % 52.4 % High 20.0-42.0 Price % 6.0 % N 4.3-13.2 Eo% 0.9 % N 0.0-6.6 Bas% 0.3 % N 0.0-1.1 Neut# 3.60 K/uL N 1.8-7.0 Lymph # 4.66 K/uL High 1.0-4.0 Price # 0.53 K/uL N 0.3-0.9 Eos # 0.08 K/uL N 0.0-0.5 Baso # 0.03 K/uL N 0.0-0.1 Ua RFX Micro & Culture II 10/21/2017 [place] Urine Color STRAW Yellow Urine Clarity CLEAR Clear Urine Glucose - Dipstick NEGATIVE mg/dL Negative Urine Bilirubin - Dipstick NEGATIVE Negative Urine Ketone NEGATIVE mg/dL Negative Urine Specific [place] 1.010 N 1.010-1.030 Urine Blood NEGATIVE Negative Urine PH 7.5 N 6.5-7.5 Urine Protein - Dipstick NEGATIVE mg/dL Negative Urine Urobilinogen - Dipstick 0.2 E.U./dL N 0.2-1.0 Urine Nitrite - Dipstick NEGATIVE Negative Urine Leuk Esterase NEGATIVE Negative Source: URINE, CLEAN CAT <SEE NOTE> 46 CBS W/Automated Diff 10/20/2017 [place] White Blood Count 6.9 K/uL N 3.1 -10.7 47 Red Blood Count 4.40 M/uL N 3.90-5.40 Hemoglobin 14.1 gm/dL N 11.6-15.8 Hematocrit 40.9 % N 36.0-46.1 Mean Cell Volume 93.0 fl N 80.9-99.0 Mean Corpuscular HGB 32.0 pg N 25.9-32.7 Mean Corpuscular HGB Conc 34.5 g/dL High 30.8-34.3 Platelet Count 267 K/uL N 155-360 Red Cell Distri Width SD 39.7 fl N 3-47 Red Cell Distri Width %CV 12.0 % N 11.7-14.4 Mean Platelet Volume 9.6 fL N 8.9-12.4 Neut% 41.7 % N 40.4-72.8 Lymph % 49.1 % High 20.0-42.0 Price % 7.1 % N 4.3-13.2 Eo% 1.7 % N 0.0-6.6 Bas% 0.4 % N 0.0-1.1 Neut# 2.87 K/uL N 1.8-7.0 Lymph # 3.38 K/uL N 1.0-4.0 Price # 0.49 K/uL N 0.3-0.9 Eos # 0.12 K/uL N 0.0-0.5 Baso # 0.03 K/uL N 0.0-0.1 Comprehensive Metabolic Panel 10/20/2017 [place] Glucose 124 mg/dL High 74-106 BUN 11 mg/dL N 7-18 Creatinine 0.8 mg/dL N 0.6-1.3 Glom Filtration Rate, Estimate >60 mL/min >60 If >60 mL/min >60 48 BUN/Creat 13.7 ratio Sodium 140 mmol/L N 136-145 Potassium 3.8 mmol/L N 3.5-5.1 Chloride 108 mmol/L High 98-107 Carbon Dioxide 25 mmol/L N 21-32 Anion Gap 7 mEq/L Low 8-16 Calcium 9.4 mg/dL N 8.5-10.1 Total Protein 7.7 g/dL N 6.4-8.2 Albumin 4.2 g/dL N 3.4-5.0 Globulin 3.5 g/dL N 1.9-4.3 Alb/Glob 1.2 ratio Bilirubin,Total 0.5 mg/dL N 0.2-1.0 Sgot/Ast 12 U/L Low 15-37 49 SGPT/Alt 19 U/L N 12-78 Alkaline Phosphatase 80 U/L N 45-117 Laboratory test finding 10/20/2017 [place] Lipase 168 U/L N 56-289 Ua RFX Micro & Culture II 10/20/2017 [place] Urine Color YELLOW Yellow Urine Clarity CLEAR Clear Urine Glucose - Dipstick NEGATIVE mg/dL Negative Urine Bilirubin - Dipstick NEGATIVE Negative Urine Ketone NEGATIVE mg/dL Negative Urine Specific [place] 1.015 N 1.010-1.030 Urine Blood TRACE Negative Urine PH 6.0 Low 6.5-7.5 Urine Protein - Dipstick NEGATIVE mg/dL Negative Urine Urobilinogen - Dipstick 0.2 E.U./dL N 0.2-1.0 Urine Nitrite - Dipstick NEGATIVE Negative Urine Leuk Esterase NEGATIVE Negative Source: URINE, CLEAN CAT <SEE NOTE> 50 CBC Auto Diff 09/26/2017 [facility] White Blood Count 7.1 10^3/uL N 3.5-10.8 Red Blood Count 4.10 10^6/uL N 4.0-5.4 Hemoglobin 13.0 g/dL N 12.0-16.0 Hematocrit 38 % N 35-47 Mean Corpuscular Volume 93 fL N 80-97 Mean Corpuscular Hemoglobin 32 pg High 27-31 Mean Corpuscular HGB Conc 34 g/dL N 31-36 Red Cell Distribution Width 13 % N 10.5-15 Platelet Count 280 10^3/uL N 150-450 Mean Platelet Volume 8 um3 N 7.4-10.4 Abs Neutrophils 3.4 10^3/uL N 1.5-7.7 Abs Lymphocytes 3.1 10^3/uL N 1.0-4.8 Abs Monocytes 0.4 10^3/uL N 0-0.8 Abs Eosinophils 0.1 10^3/uL N 0-0.6 Abs Basophils 0 10^3/uL N 0-0.2 Abs Nucleated RBC 0 10^3/uL Granulocyte % 47.8 % N 38-83 Lymphocyte % 43.7 % N 25-47 Monocyte % 6.3 % N 1-9 Eosinophil % 1.8 % N 0-6 Basophil % 0.4 % N 0-2 Nucleated Red Blood Cells % 0 Comp Metabolic Panel 09/26/2017 [facility] Sodium 139 mmol/L N 133- 145 Potassium 4.4 mmol/L N 3.5-5.0 Chloride 104 mmol/L N 101-111 Co2 Carbon Dioxide 28 mmol/L N 22-32 Anion Gap 7 mmol/L N 2-11 Glucose 116 mg/dL High 70-100 Blood Urea Nitrogen 12 mg/dL N 6-24 Creatinine 0.79 mg/dL N 0.51-0.95 BUN/Creatinine Ratio 15.2 N 8-20 Calcium 9.5 mg/dL N 8.6-10.3 Total Protein 6.5 g/dL N 6.4-8.9 Albumin 4.3 g/dL N 3.2-5.2 Globulin 2.2 g/dL N 2-4 Albumin/Globulin Ratio 2.0 N 1-3 Total Bilirubin 0.40 mg/dL N 0.2-1.0 Alkaline Phosphatase 58 U/L N 34-104 Alt 10 U/L N 7-52 Ast 12 U/L Low 13-39 Egfr Non- 78.0 >60 Egfr 100.3 >60 51 Laboratory test 09/26/2017 [facility] Hemoglobin A1c 6.0 % High 4.0- 5.6 52 finding (Glyco HGB) Urine Microalbumin 09/26/2017 [facility] Ur Microalbumin < 15.0 Random (mg/L) mg/L Urine Creatinine 255.31 mg/dL Urine Microalbumin/Creatinine TNP ug/mg <31 53 Laboratory test 09/26/2017 [facility] TSH (Thyroid Stim 0.51 mcIU/mL N 0.34-5.60 54 finding Horm) Lipid Profile 09/26/2017 [facility] Triglycerides 326 mg/dL 55 (Trig/Chol/HDL) Cholesterol 215 mg/dL 56 HDL Cholesterol 37.2 mg/dL 57 LDL Cholesterol 113 mg/dL 58 Laboratory test 09/26/2017 [facility] Vitamin D Total 26.5 ng/mL N 20 -50 59 finding 25(Oh) Vitamin B12 276 pg/mL N 180-914 60 Laboratory test 06/13/2017 [facility] Hemoglobin A1c 6.4 % High Less than 61 finding (Glyco HGB) 6.0 CBC Auto Diff 06/13/2017 [facility] White Blood 7.1 N 3.5-10.8 Count 10^3/uL Red Blood Count 4.04 10^6/uL N 4.0-5.4 Hemoglobin 12.8 g/dL N 12.0-16.0 Hematocrit 38 % N 35-47 Mean Corpuscular Volume 95 fL N 80-97 Mean Corpuscular Hemoglobin 32 pg High 27-31 Mean Corpuscular HGB Conc 34 g/dL N 31-36 Red Cell Distribution Width 13 % N 10.5-15 Platelet Count 225 10^3/uL N 150-450 Mean Platelet Volume 8 um3 N 7.4-10.4 Abs Neutrophils 3.9 10^3/uL N 1.5-7.7 Abs Lymphocytes 2.7 10^3/uL N 1.0-4.8 Abs Monocytes 0.3 10^3/uL N 0-0.8 Abs Eosinophils 0.1 10^3/uL N 0-0.6 Abs Basophils 0.1 10^3/uL N 0-0.2 Abs Nucleated RBC 0.01 10^3/uL N Granulocyte % 55.4 % N 38-83 Lymphocyte % 38.2 % N 25-47 Monocyte % 3.6 % N 1-9 Eosinophil % 1.9 % N 0-6 Basophil % 0.9 % N 0-2 Nucleated Red Blood Cells % 0.1 N Comp Metabolic Panel 06/13/2017 [facility] Sodium 136 mmol/L N 133- 145 Potassium 3.9 mmol/L N 3.5-5.0 Chloride 104 mmol/L N 101-111 Co2 Carbon Dioxide 24 mmol/L N 22-32 Anion Gap 8 mmol/L N 2-11 Glucose 163 mg/dL High 70-100 Blood Urea Nitrogen 8 mg/dL N 6-24 Creatinine 0.80 mg/dL N 0.51-0.95 BUN/Creatinine Ratio 10.0 N 8-20 Calcium 9.2 mg/dL N 8.6-10.3 Total Protein 6.4 g/dL N 6.4-8.9 Albumin 4.2 g/dL N 3.2-5.2 Globulin 2.2 g/dL N 2-4 Albumin/Globulin Ratio 1.9 N 1-3 Total Bilirubin 0.50 mg/dL N 0.2-1.0 Alkaline Phosphatase 55 U/L N 34-104 Alt 9 U/L N 7-52 Ast 13 U/L N 13-39 Egfr Non- 76.9 N >60 Egfr 98.9 N >60 62 Laboratory test 06/13/2017 [facility] Creatine Kinase(CK) 78 U/L N 10 -223 63 finding Lipid Profile 06/13/2017 [facility] Triglycerides 262 mg/dL N 64 (Trig/Chol/HDL) Cholesterol 180 mg/dL N 65 HDL Cholesterol 36.3 mg/dL N 66 LDL Cholesterol 91 mg/dL N 67 Laboratory test 06/13/2017 [facility] TSH (Thyroid 0.65 mcIU/mL N 0.34-5.60 68 finding Stim Horm) Iron & Iron 06/13/2017 [facility] Iron 89 g/dL N 50-212 Binding Capacity Unsaturated Iron Binding 251 g/dL N Total Iron Binding Capacity 340 g/dL N 250-450 % Iron Saturation 26 % N 15-55 CBC Auto Diff 02/20/2017 [facility] White Blood Count 8.7 10^3/uL N 3.5-10.8 Red Blood Count 4.18 10^6/uL N 4.0-5.4 Hemoglobin 12.9 g/dL N 12.0-16.0 Hematocrit 39 % N 35-47 Mean Corpuscular Volume 94 fL N 80-97 Mean Corpuscular Hemoglobin 31 pg N 27-31 Mean Corpuscular HGB Conc 33 g/dL N 31-36 Red Cell Distribution Width 12 % N 10.5-15 Platelet Count 245 10^3/uL N 150-450 Mean Platelet Volume 8 um3 N 7.4-10.4 Abs Neutrophils 4.4 10^3/uL N 1.5-7.7 Abs Lymphocytes 3.6 10^3/uL N 1.0-4.8 Abs Monocytes 0.4 10^3/uL N 0-0.8 Abs Eosinophils 0.2 10^3/uL N 0-0.6 Abs Basophils 0.1 10^3/uL N 0-0.2 Abs Nucleated RBC 0.01 10^3/uL N Granulocyte % 50.3 % N 38-83 Lymphocyte % 41.5 % N 25-47 Monocyte % 5.0 % N 1-9 Eosinophil % 1.9 % N 0-6 Basophil % 1.3 % N 0-2 Nucleated Red Blood Cells % 0.1 N Comp Metabolic Panel 02/20/2017 [facility] Sodium 137 mmol/L N 133- 145 Potassium 4.1 mmol/L N 3.5-5.0 Chloride 102 mmol/L N 101-111 Co2 Carbon Dioxide 29 mmol/L N 22-32 Anion Gap 6 mmol/L N 2-11 Glucose 102 mg/dL High 70-100 Blood Urea Nitrogen 7 mg/dL N 6-24 Creatinine 0.82 mg/dL N 0.51-0.95 BUN/Creatinine Ratio 8.5 N 8-20 Calcium 9.5 mg/dL N 8.6-10.3 Total Protein 6.6 g/dL N 6.4-8.9 Albumin 4.1 g/dL N 3.2-5.2 Globulin 2.5 g/dL N 2-4 Albumin/Globulin Ratio 1.6 N 1-3 Total Bilirubin 0.60 mg/dL N 0.2-1.0 Alkaline Phosphatase 67 U/L N 34-104 Alt 10 U/L N 7-52 Ast 13 U/L N 13-39 Egfr Non- 75.1 N >60 Egfr 96.5 N >60 69 Laboratory test 02/20/2017 [facility] TSH (Thyroid 0.65 mcIU/mL N 0.34-5.60 70 finding Stim Horm) Hemoglobin A1c (Glyco HGB) 6.2 % High Less than 6.0 71 Lipid Profile 02/20/2017 [facility] Triglycerides 274 mg/dL N 72 (Trig/Chol/HDL) Cholesterol 199 mg/dL N 73 HDL Cholesterol 36.7 mg/dL N 74 LDL Cholesterol 108 mg/dL N 75 Laboratory test finding 02/20/2017 [facility] Vitamin B12 367 pg/mL N 180-914 76 Vitamin D Total 25(Oh) 48.7 ng/mL N 30-50 77 Laboratory 09/17/2016 [facility] TSH,Ultrasensitive @ 0.596 (0.360- 4.170) test finding 113 IN[employer] JOSE mIU/L (607)- - Lipid 09/17/2016 [facility] Cholesterol @ 216 High (0-200) 113 RADHIKA GARCIA mg/dL (607)- - Triglyceride @ 256 mg/dL High (30-200) HDL Cholesterol @ 40 mg/dL Low (>40) 78 Chol/HDL Ratio 5.4 RATIO 79 LDL Chol (Calc) 125 mg/dL (<130) 80 CMP 09/17/2016 [facility] Sodium 143 mmol/L (136-145) 113 RADHIKA GARCIA (607)- - Potassium 4.0 mmol/L (3.6-5.2) Chloride 107 mmol/L (100-108) Co2 27 mmol/L (22-31) Anion Gap 9 mmol/L (7-16) Urea Nitrogen 10 mg/dL (7-24) Creatinine 0.68 mg/dL (0.60-1.00) BUN/Creat Ratio 14.7 RATIO (10.0-20.0) Glucose 83 mg/dL (70-99) Calcium 9.5 mg/dL (8.4-10.2) Total Protein 7.2 g/dL (6.4-8.2) Albumin 4.2 g/dL (3.5-4.6) Globulin 3.0 g/dL (2.7-4.3) Alb/Glob Ratio 1.4 RATIO Alkaline Phosphatase 79 U/L (45-117) Bilirubin,Total 0.4 mg/dL (0.0-1.0) Ast (Sgot) 8 U/L Low (11-39) Alt (SGPT) 16 U/L (12-78) GFR >60 ml/min/1.73m2 (>59) GFR ( Amer) >60 ml/min/1.73m2 (>59) GFR Interpretation <SEE NOTE> 81 CBC With Diff 09/17/2016 [facility] WBC 9.1 10*3/uL (4.1-11.0) Dylan GARCIA (607)- - RBC 4.30 10*6/uL (4.00-5.40) HGB 13.5 g/dL (12.0-16.0) HCT 39.6 % (36.0-47.0) MCV 92.2 fL (80.0-95.0) MCH 31.5 pg (27.0-32.0) MCHC 34.2 g/dL (32.0-36.0) RDW 12.5 % (10.5-14.5) PLT 252 10*3/uL (150-450) MPV 8.6 fL (7.1-10.7) Neut % 47.7 % (35.0-75.0) Lymph % 44.4 % (16.0-52.0) Price % 5.7 % (0.0-8.0) Eos % 0.9 % (0.0-5.0) Baso % 1.3 % (0.0-4.0) Neut # 4.3 10*3/uL (1.8-7.7) Lymph # 4.0 10*3/uL (1.2-4.8) Price # 0.5 10*3/uL (0.0-0.8) Eos # 0.1 10*3/uL (0.0-0.5) Baso # 0.1 10*3/uL (0.0-0.2) Hemoglobin A1c 09/17/2016 [facility] Hemoglobin A1c @ 5.9 % (4.0-6.0) 113 RADHIKA GARCIA (607)- - Est Average Glucose 123 mg/dL 82 Laboratory test 05/14/2016 [facility] Rapid Strep Negative N Negative 83 finding Molecular Laboratory test 05/14/2016 [facility] Throat Culture SEE RESULT 84 , 85 finding BELOW Laboratory test 10/17/2015 [facility] Uric Acid 6.6 mg/dL N 2.3-6.6 finding Vitamin D Total 25(Oh) 20.6 ng/mL Low 30-50 Kezia (Antinuclear Antibodies) Negative N Negative Rheumatoid Factor <15 IU/mL N <15 86 Urine Microalbumin 10/17/2015 [facility] Ur Microalbumin < 5.0 mg/L N Random (mg/L) Urine Creatinine 170.92 mg/dL N Urine Microalbumin/Creatinine TNP ug/mg N <31 87 Laboratory test finding 10/17/2015 [facility] Magnesium 1.8 mg/dL Low 1.9-2.7 TSH (Thyroid Stim Horm) 0.62 ?IU/mL N 0.34-5.60 Free T4 (Free Thyroxine) 0.89 ng/mL N 0.61-1.12 Lipid Profile 10/17/2015 [facility] Triglycerides 169 mg/dL N 88 (Trig/Chol/HDL) Cholesterol 198 mg/dL N 89 HDL Cholesterol 30.7 mg/dL N 90 LDL Cholesterol 134 mg/dL N 91 Laboratory test 10/17/2015 [facility] CRP High Sensitivity 13.14 mg/L N 92 finding Erythrocyte Sed Rate 17 mm/Hr High 0-14 Hemoglobin A1c (Glyco HGB) 7.3 % High Less than 6.0 93 Comp Metabolic Panel 10/17/2015 [facility] Sodium 138 mmol/L N 133- 145 Potassium 4.0 mmol/L N 3.5-5.0 Chloride 105 mmol/L N 101-111 Co2 Carbon Dioxide 26 mmol/L N 22-32 Anion Gap 7 mmol/L N 2-11 Glucose 146 mg/dL High 70-100 Blood Urea Nitrogen 9 mg/dL N 6-24 Creatinine 0.86 mg/dL N 0.51-0.95 BUN/Creatinine Ratio 10.5 N 8-20 Calcium 9.7 mg/dL N 8.6-10.3 Total Protein 6.8 g/dL N 6.4-8.9 Total Bilirubin 0.40 mg/dL N 0.2-1.0 Alkaline Phosphatase 66 U/L N 34-104 Alt 23 U/L N 7-52 Ast 24 U/L N 13-39 Egfr Non- 71.4 N >60 Egfr 91.8 N >60 94 Albumin 4.2 g/dL N 3.2-5.2 Globulin 2.6 g/dL N 2-4 Albumin/Globulin Ratio 1.6 N 1-3 CBC Auto Diff 10/17/2015 [facility] White Blood Count 7.5 10^3/uL N 4.8-10.8 Red Blood Count 4.23 10^6/uL N 4.0-5.4 Hemoglobin 13.3 g/dL N 12.0-16.0 Hematocrit 40 % N 35-47 Mean Corpuscular Volume 95 fL N 80-97 Mean Corpuscular Hemoglobin 32 pg High 27-31 Mean Corpuscular HGB Conc 33 g/dL N 31-36 Red Cell Distribution Width 12 % N 10.5-15 Platelet Count 261 10^3/uL N 150-450 Mean Platelet Volume 9 um3 N 7.4-10.4 Abs Neutrophils 3.5 10^3/uL N 1.5-7.7 Abs Lymphocytes 3.4 10^3/uL N 1.0-4.8 Abs Monocytes 0.4 10^3/uL N 0-0.8 Abs Eosinophils 0.1 10^3/uL N 0-0.6 Abs Basophils 0 10^3/uL N 0-0.2 Abs Nucleated RBC 0.01 10^3/uL N Granulocyte % 47.1 % N 38-83 Lymphocyte % 44.8 % N 25-47 Monocyte % 5.5 % N 1-9 Eosinophil % 2.0 % N 0-6 Basophil % 0.6 % N 0-2 Nucleated Red Blood Cells % 0.1 N 1 FLU, PNEUMONIA, VOMITING 2 NO GROWTH: FINAL REPORT 3 NO GROWTH: FINAL REPORT 4 Please Note: A POSITIVE result for influenza A and/or B antigen does not rule out a co-infection with other pathogens or identify any specific influenza A virus subtype. A NEGATIVE result for influenza A and/or B antigen does not preclude influenza virus infection and should not be the sole basis for treatment or other management decisions, since the antigen present in the specimen may be below the detection limit of the test. A NEGATIVE result is PRESUMPTIVE and it is recommended these results be confirmed by virus culture or an FDA-cleared influenza A and B molecular assay. Method: [employer] Chromatographic immunoassay 5 Note: Persistent reduction for 3 months or more in an eGFR <60 mL/min/1.73 m2 defines CKD. Patients with eGFR values >/=60 mL/min/1.73 m2 may also have CKD if evidence of persistent proteinuria is present. The original MDRD equation for estimated GFR is not valid for patients less than 18 years of age. Additional information may be found at www.[email or web address]. 6 NO GROWTH: FINAL REPORT 7 NO GROWTH: FINAL REPORT 8 [place] Former: [id number] NORMAL KIDNEY FUNCTION OR MILD DISEASE - GFR >OR=60 CHRONIC KIDNEY DISEASE - GFR 15 - 59 RENAL FAILURE - GFR <15 Est. GFR calculation based on the MDRD study equation, which assumes a steady state for creatinine. Est. GFR should not be used for medication dosing. 10 Performed using Siemens [employer] immunoassay. Care must be taken when interpreting HbA1c results in patients with a hemoglobin variant or decreased erythrocyte lifespan. Values 5.7 - 6.4% suggest prediabetes. Values >=6.5% are diagnostic for diabetes. REFERENCE: DIABETES CARE 2018: 41(S13-S27). 11 PER NCEP ATP III GUIDELINES: RESULTS LOWER THAN 40 MG/DL ARE SUGGESTIVE OF INCREASED RISK FOR CORONARY ARTERY DISEASE. RESULTS > OR=TO 60 MG/DL ARE CONSIDERED A NEGATIVE RISK FACTOR. 12 INTERPRETATION OF CHOL-HDL RATIO CHD RISK FEMALE MALE VERY HIGH >8.3 >14.3 HIGH 5.6- 8.3 6.7- 14.3 AVERAGE 3.7- 5.6 4.0- 6.7 BELOW AVERAGE 2.5- 3.7 2.7- 4.0 PROTECTED <2.5 <2.7 13 PER NCEP ATP III GUIDELINES: OPTIMAL < 100 NEAR OPTIMAL 100 - 129 BORDERLINE HIGH 130 - 159 HIGH 160 - 189 VERY HIGH > 189 14 False positive for opiate scre ening due to high level of noroxycodone. Prescribed Medications: Oxycodone (Oxycodone), Acetaminophen (Acetaminophen), LISINOPRIL , OMEPRAZOLE 15 Prescribed Medications: Oxycodone (Oxycodone), Acetaminophen (Acetaminophen ), LISINOPRIL, OMEPRAZOLE 16 Prescribed Medications: Oxycodone (Oxycodone), Acetaminophen (Acetaminophen ), LISINOPRIL, OMEPRAZOLE 17 Prescribed Medications: Oxycodone (Oxycodone), Acetaminophen (Acetaminophen ), LISINOPRIL, OMEPRAZOLE 18 Prescribed Medications: Oxycodone (Oxycodone), Acetaminophen (Acetaminophen ), LISINOPRIL, OMEPRAZOLE 19 Prescribed Medications: Oxycodone (Oxycodone), Acetaminophen (Acetaminophen ), LISINOPRIL, OMEPRAZOLE 20 Prescribed Medications: Oxycodone (Oxycodone), Acetaminophen (Acetaminophen ), LISINOPRIL, OMEPRAZOLE 21 1326 Positive Consistent 22 397 Positive Consistent Noroxymorphone is the metabolite of four different parent drugs: oxycodone, oxymorphone, naloxone and naltrexone. 23 1254 Positive Consistent 24 1085 Positive Consistent Prescribed Medications: Oxycodone (Oxycodone), Acetaminophen (Acetaminophen) , LISINOPRIL, OMEPRAZOLE 25 Prescribed Medications: Oxycodone (Oxycodone), Acetaminophen (Acetaminophen ), LISINOPRIL, OMEPRAZOLE 26 Prescribed Medications: Oxycodone (Oxycodone), Acetaminophen (Acetaminophen ), LISINOPRIL, OMEPRAZOLE 27 Prescribed Medications: Oxycodone (Oxycodone), Acetaminophen (Acetaminophen ), LISINOPRIL, OMEPRAZOLE 28 Prescribed Medications: Oxycodone (Oxycodone), Acetaminophen (Acetaminophen ), LISINOPRIL, OMEPRAZOLE 29 Prescribed Medications: Oxycodone (Oxycodone), Acetaminophen (Acetaminophen ), LISINOPRIL, OMEPRAZOLE 30 Prescribed Medications: Oxycodone (Oxycodone), Acetaminophen (Acetaminophen ), LISINOPRIL, OMEPRAZOLE 31 Because ethnic data is not always readily available, this report includes an eGFR for both -Americans and non- Americans. The National Kidney Disease Education Program (NKDEP) does not endorse the use of the MDRD equation for patients that are not between the ages of 18 and 70, are , have extremes of body size, muscle mass, or nutritional status, or are non- or non-. According to the National Kidney Foundation, irrespective of diagnosis, the stage of the disease is based on the level of kidney function: Stage Description GFR(mL/min/1.73 m(2)) 1 Kidney damage with normal or decreased GFR 90 2 Kidney damage with mild decrease in GFR 60-89 3 Moderate decrease in GFR 30-59 4 Severe decrease in GFR 15-29 5 Kidney failure <15 (or dialysis) 32 Therapeutic target for the treatment of diabetes mellitus patients is <7% HBA1C, and in selective patients <6.0%. Please refer to [place] [employer] Association diabetic care guidelines for further information. 33 [id number] Desirable: <150 Borderline High: 150-199 High: 200-499 Very High: >500 35 Desirable: <200 Borderline High: 200-239 High: >239 36 Low: <40 Desirable: 40-60 High: >60 37 Desirable: <100 Near Optimal: 100-129 Borderline High: 130-159 High: 160-189 Very High: >189 38 Normal Range 180 to 914 Indeterminate Range 145 to 180 Deficient Range <145 39 [id number] 40 [id number] 41 R30.0,R31.9 42 URINE, CLEAN CATCH 43 Note: Persistent reduction for 3 months or more in an eGFR <60 mL/min/1.73 m2 defines CKD. Patients with eGFR values >/=60 mL/min/1.73 m2 may also have CKD if evidence of persistent proteinuria is present. The original MDRD equation for estimated GFR is not valid for patients less than 18 years of age. Additional information may be found at [email or web address]. 44 [place] Former: [id number] 45 ABD PAIN HX RUPTURED CYST ON OVARY 46 URINE, CLEAN CATCH 47 LOWER ABD PAIN 48 Note: Persistent reduction for 3 months or more in an eGFR <60 mL/min/1.73 m2 defines CKD. Patients with eGFR values >/=60 mL/min/1.73 m2 may also have CKD if evidence of persistent proteinuria is present. The original MDRD equation for estimated GFR is not valid for patients less than 18 years of age. Additional information may be found at www.[email or web address]. 49 Values below the stated reference ranges of AST and ALT can be seen in normal populations. Clinical correlation is suggested. 50 URINE, CLEAN CATCH 51 Because ethnic data is not always readily available, this report includes an eGFR for both -Americans and non- Americans. The National Kidney Disease Education Program (NKDEP) does not endorse the use of the MDRD equation for patients that are not between the ages of 18 and 70, are , have extremes of body size, muscle mass, or nutritional status, or are non- or non-. According to the National Kidney Foundation, irrespective of diagnosis, the stage of the disease is based on the level of kidney function: Stage Description GFR(mL/min/1.73 m(2)) 1 Kidney damage with normal or decreased GFR 90 2 Kidney damage with mild decrease in GFR 60-89 3 Moderate decrease in GFR 30-59 4 Severe decrease in GFR 15-29 5 Kidney failure <15 (or dialysis) 52 Therapeutic target for the treatment of diabetes mellitus patients is <7% HBA1C, and in selective patients <6.0%. Please refer to [place] [employer] diabetic care guidelines for further information. 53 Unable to calculate due to low microalbumin 54 [id number] Desirable: <150 Borderline High: 150-199 High: 200-499 Very High: >500 56 Desirable: <200 Borderline High: 200-239 High: >239 57 Low: <40 Desirable: 40-60 High: >60 58 Desirable: <100 Near Optimal: 100-129 Borderline High: 130-159 High: 160-189 Very High: >189 59 [id number] Normal Range 180 to 914 Indeterminate Range 145 to 180 Deficient Range <145 61 Therapeutic target for the treatment of diabetes Mellitus patients is <7% HBA1C, and in selective patients <6.0%.Please refer to [place] [employer] Diabetic care guidelines for further information. 62 Because ethnic data is not always readily available, this report includes an eGFR for both -Americans and non- Americans. The National Kidney Disease Education Program (NKDEP) does not endorse the use of the MDRD equation for patients that are not between the ages of 18 and 70, are , have extremes of body size, muscle mass, or nutritional status, or are non- or non-. According to the National Kid[employer] Foundation, irrespective of diagnosis, the stage of the disease is based on the level of kidney function: Stage Description GFR(mL/min/1.73 m(2)) 1 Kidney damage with normal or decreased GFR 90 2 Kidney damage with mild decrease in GFR 60-89 3 Moderate decrease in GFR 30-59 4 Severe decrease in GFR 15-29 5 Kidney failure <15 (or dialysis) 63 [id number] Desirable <150 Borderline high 150-199 High 200-499 Very High >500 65 Desirable <200 Borderline high 200-239 High >239 66 Low <40 Desirable: 40-60 High: >60 67 Desirable: <100 mg/dL Near Optimal: 100-129 mg/dL Borderline High: 130-159 mg/dL High: 160-189 mg/dL Very High: >189 mg/dL 68 [id number] 69 Because ethnic data is not always readily available, this report includes an eGFR for both -Americans and non- Americans. The National Kidney Disease Education Program (NKDEP) does not endorse the use of the MDRD equation for patients that are not between the ages of 18 and 70, are , have extremes of body size, muscle mass, or nutritional status, or are non- or non-. According to the National Kidney Foundation, irrespective of diagnosis, the stage of the disease is based on the level of kidney function: Stage Description GFR(mL/min/1.73 m(2)) 1 Kidney damage with normal or decreased GFR 90 2 Kidney damage with mild decrease in GFR 60-89 3 Moderate decrease in GFR 30-59 4 Severe decrease in GFR 15-29 5 Kidney failure <15 (or dialysis) 70 [id number] 71 Therapeutic target for the treatment of diabetes Mellitus patients is <7% HBA1C, and in selective patients <6.0%.Please refer to [place] [employer] Diabetic care guidelines for further information. 72 Desirable <150 Borderline high 150-199 High 200-499 Very High >500 73 Desirable <200 Borderline high 200-239 High >239 74 Low <40 Desirable: 40-60 High: >60 75 Desirable: <100 mg/dL Near Optimal: 100-129 mg/dL Borderline High: 130-159 mg/dL High: 160-189 mg/dL Very High: >189 mg/dL 76 Normal Range 180 to 914 Indeterminate Range 145 to 180 Deficient Range <145 77 [id number] 78 PER NCEP ATP III GUIDELINES: RESULTS LOWER THAN 40 MG/DL ARE SUGGESTIVE OF INCREASED RISK FOR CORONARY ARTERY DISEASE. RESULTS > OR=TO 60 MG/DL ARE CONSIDERED A NEGATIVE RISK FACTOR. 79 INTERPRETATION OF CHOL-HDL RATIO CHD RISK FEMALE MALE VERY HIGH >8.3 >14.3 HIGH 5.6- 8.3 6.7- 14.3 AVERAGE 3.7- 5.6 4.0- 6.7 BELOW AVERAGE 2.5- 3.7 2.7- 4.0 PROTECTED <2.5 <2.7 80 PER NCEP ATP III GUIDELINES: OPTIMAL < 100 NEAR OPTIMAL 100 - 129 BORDERLINE HIGH 130 - 159 HIGH 160 - 189 VERY HIGH > 189 81 NORMAL KIDNEY FUNCTION OR MILD DISEASE - GFR >OR=60 CHRONIC KIDNEY DISEASE - GFR 15 - 59 RENAL FAILURE - GFR <15 Est. GFR calculation based on the MDRD study equation, which assumes a steady state for creatinine. Est. GFR should not be used for medication dosing. 82 HEMOGLOBIN A1c INTERPRETATION: 4.0-6.0% GOOD GLYCEMIC CONTROL 6.1-6.5% AT RISK FOR HYPERGLYCEMIA >6.5% DIABETIC/ POOR GLYCEMIC CONTROL REFERENCE: DIABETES CARE 32(7), 2008 IF A1c RESULT IS INCONSISTENT WITH CLINICAL ESTIMATES OF GLYCEMIC CONTROL, AN INTERFERING Hb VARIANT SHOULD BE CONSIDERED. 83 [place] Former: [id number] AMAN BOWLING Due to the increased sensitivity of molecular testing, reflex cultures are no longer performed. 84 [id number] 85 SEE RESULT BELOW Name: VLADIMIRCHESTER Yuliya : [address]: Nicol Hill MD Acct: [id number] Unit: [id number] AGE: 46 Location: [facility] Re05/14/16 SEX: F Status: DEP ER SPEC: [id number] KENNED[place]: 05/14/16-0752 [facility] DR: Nicol Hill MD REQ: [id number] RECD: [id number] STATUS: [facility] DR: Ken Hernandez MD _ SOURCE: THROAT SPDESC: ORDERED: Throat Culture COMMENTS: [id number] Procedure Result Reported Site Throat Culture Final 05/16/16- 901 ML Organism 1 NORMAL PERFECTO Quantity 2+ * ML - MAIN LAB ([facility]) . END OF REPORT * ML=Testing performed at Main Lab DEPARTMENT OF PATHOLOGY, [address] [place] [address] Ozzie Solano M.D. Director [facility] # [id number] 86 Test Performed by: [place] [address] Crank Hand: Favian Luis II, M.D., Ph.D. 87 Unable to calculate due to low microalbumin 88 Desirable <150 Borderline high 150-199 High 200-499 Very High >500 89 Desirable <200 Borderline high 200-239 High >239 90 Low <40 Desirable: 40-60 High: >60 91 Desirable: <100 mg/dL Near Optimal: 100-129 mg/dL Borderline High: 130-159 mg/dL High: 160-189 mg/dL Very High: >189 mg/dL 92 Low risk: <1.00 Average risk: 1.00-3.00 High risk: >3.00 93 Therapeutic target for the treatment of diabetes Mellitus patients is <7% HBA1C, and in selective patients <6.0%.Please refer to [place] [employer] Diabetic care guidelines for further information. 94 Because ethnic data is not always readily available, this report includes an eGFR for both -Americans and non- Americans. The National Kidney Disease Education Program (NKDEP) does not endorse the use of the MDRD equation for patients that are not between the ages of 18 and 70, are , have extremes of body size, muscle mass, or nutritional status, or are non- or non-. According to the National Kidney Foundation, irrespective of diagnosis, the stage of the disease is based on the level of kidney function: Stage Description GFR(mL/min/1.73 m(2)) 1 Kidney damage with normal or decreased GFR 90 2 Kidney damage with mild decrease in GFR 60-89 3 Moderate decrease in GFR 30-59 4 Severe decrease in GFR 15-29 5 Kidney failure <15 (or dialysis) Procedures Date Code Description Status 07/04/2018 92009 EKG Completed 04/14/2018 81672 Visual Screening Test Completed 04/14/2018 41549 Spirometry Completed 04/14/2018 36000 Tympanometry Completed 04/14/2018 86756 Audiometry, Bekesy, Screening Completed 04/04/2018 47687 Tympanometry Completed 03/13/2018 02113 Tympanometry Completed 12/10/2017 45025 Spirometry Completed 10/01/2017 05769 EKG Completed 03/12/2017 92228 Audiometry, Bekesy, Screening Completed 03/12/2017 36149 Visual Screening Test Completed 02/05/2017 73732 Spirometry Completed 02/05/2017 21051 Tympanometry Completed 01/12/2016 11922 Spirometry Completed 01/12/2016 95312 Tympanometry Completed 11/24/2015 73027 Spirometry Completed 11/24/2015 40186 Tympanometry Completed 10/14/2015 78358 Visual Screening Test Completed 10/14/2015 90361 EKG Completed 10/14/2015 39752 Audiometry, Bekesy, Screening Completed Encounters Type Date Location Provider Dx Diagnosis Office Visit 01/22/2019 [facility] Ken Hernandez Kathy, E11.65 Type 2 diabetes 10:45a M.D. mellitus with hyperglycemia I10 Essential (primary) hypertension E78.2 Mixed hyperlipidemia M51.37 Other intervertebral disc degeneration, lumbosacral region K21.0 Gastro-esophageal reflux disease with esophagitis R51 Headache Z98.84 Bariatric surgery status E66.01 Morbid (severe) obesity due to excess calories M79.605 Pain in left leg K30 Functional dyspepsia L20.9 Atopic dermatitis, unspecified J30.9 Allergic rhinitis, unspecified J45.909 Unspecified asthma, uncomplicated R53.83 Other fatigue L81.8 Other specified disorders of pigmentation E55.9 Vitamin D deficiency, unspecified R00.2 Palpitations N20.0 Calculus of kidney R31.9 Hematuria, unspecified 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 mellitus with hyperglycemia I10 Essential (primary) hypertension E78.2 Mixed hyperlipidemia M51.37 Other intervertebral disc degeneration, lumbosacral region K21.0 Gastro-esophageal reflux disease with esophagitis R51 Headache Z98.84 Bariatric surgery status E66.01 Morbid (severe) obesity due to excess calories M79.605 Pain in left leg K30 Functional dyspepsia L20.9 Atopic dermatitis, unspecified J30.9 Allergic rhinitis, unspecified J45.909 Unspecified asthma, uncomplicated R53.83 Other fatigue L81.8 Other specified disorders of pigmentation E55.9 Vitamin D deficiency, unspecified R00.2 Palpitations N20.0 Calculus of kidney R31.9 Hematuria, unspecified 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 mellitus with hyperglycemia I10 Essential (primary) hypertension E78.2 Mixed hyperlipidemia M51.37 Other intervertebral disc degeneration, lumbosacral region K21.0 Gastro-esophageal reflux disease with esophagitis R51 Headache Z98.84 Bariatric surgery status E66.01 Morbid (severe) obesity due to excess calories M79.605 Pain in left leg K30 Functional dyspepsia L20.9 Atopic dermatitis, unspecified J30.9 Allergic rhinitis, unspecified J45.909 Unspecified asthma, uncomplicated R53.83 Other fatigue L81.8 Other specified disorders of pigmentation E55.9 Vitamin D deficiency, unspecified R00.2 Palpitations N20.0 Calculus of kidney R31.9 Hematuria, unspecified 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 mellitus with hyperglycemia I10 Essential (primary) hypertension E78.2 Mixed hyperlipidemia M51.37 Other intervertebral disc degeneration, lumbosacral region K21.0 Gastro-esophageal reflux disease with esophagitis R51 Headache Z98.84 Bariatric surgery status E66.01 Morbid (severe) obesity due to excess calories M79.605 Pain in left leg K30 Functional dyspepsia L20.9 Atopic dermatitis, unspecified J30.9 Allergic rhinitis, unspecified J45.909 Unspecified asthma, uncomplicated R53.83 Other fatigue L81.8 Other specified disorders of pigmentation E55.9 Vitamin D deficiency, unspecified R00.2 Palpitations N20.0 Calculus of kidney R31.9 Hematuria, unspecified 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 mellitus with hyperglycemia I10 Essential (primary) hypertension E78.2 Mixed hyperlipidemia M51.37 Other intervertebral disc degeneration, lumbosacral region K21.0 Gastro-esophageal reflux disease with esophagitis R51 Headache Z98.84 Bariatric surgery status E66.01 Morbid (severe) obesity due to excess calories M79.605 Pain in left leg K30 Functional dyspepsia L20.9 Atopic dermatitis, unspecified J30.9 Allergic rhinitis, unspecified J45.909 Unspecified asthma, uncomplicated R53.83 Other fatigue L81.8 Other specified disorders of pigmentation E55.9 Vitamin D deficiency, unspecified R00.2 Palpitations N20.0 Calculus of kidney R31.9 Hematuria, unspecified 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 R09.81 Nasal congestion R06.02 Shortness of breath Z79.891 [facility] (current) use of opiate analgesic R35.0 Frequency of micturition R30.0 Dysuria N39.0 Urinary tract infection, site not specified Office Visit 08/28/2018 2:45p [facility] Ken Hernandez [id number] Type 2 diabetes Pamela Chavez mellitus with hyperglycemia I10 Essential (primary) hypertension E78.2 Mixed hyperlipidemia M51.37 Other intervertebral disc degeneration, lumbosacral region K21.0 Gastro-esophageal reflux disease with esophagitis R51 Headache Z98.84 Bariatric surgery status E66.01 Morbid (severe) obesity due to excess calories M79.605 Pain in left leg K30 Functional dyspepsia L20.9 Atopic dermatitis, unspecified J30.9 Allergic rhinitis, unspecified J45.909 Unspecified asthma, uncomplicated R53.83 Other fatigue L81.8 Other specified disorders of pigmentation E55.9 Vitamin D deficiency, unspecified R00.2 Palpitations N20.0 Calculus of kidney R31.9 Hematuria, unspecified 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 R09.81 Nasal congestion R06.02 Shortness of breath Z79.891 [facility] (current) use of opiate analgesic R35.0 Frequency of micturition R30.0 Dysuria N39.0 Urinary tract infection, site not specified Office Visit 07/29/2018 1:15p [facility] Ken Hernandez E11.65 Type 2 diabetes Pamela Chavez mellitus with hyperglycemia I10 Essential (primary) hypertension E78.2 Mixed hyperlipidemia M51.37 Other intervertebral disc degeneration, lumbosacral region K21.0 Gastro-esophageal reflux disease with esophagitis R51 Headache Z98.84 Bariatric surgery status E66.01 Morbid (severe) obesity due to excess calories M79.605 Pain in left leg K30 Functional dyspepsia L20.9 Atopic dermatitis, unspecified J30.9 Allergic rhinitis, unspecified J45.909 Unspecified asthma, uncomplicated R53.83 Other fatigue L81.8 Other specified disorders of pigmentation E55.9 Vitamin D deficiency, unspecified R00.2 Palpitations N20.0 Calculus of kidney R31.9 Hematuria, unspecified 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 mellitus with hyperglycemia I10 Essential (primary) hypertension M51.37 Other intervertebral disc degeneration, lumbosacral region E78.2 Mixed hyperlipidemia K21.0 Gastro-esophageal reflux disease with esophagitis R51 Headache Z98.84 Bariatric surgery status E66.01 Morbid (severe) obesity due to excess calories M79.605 Pain in left leg K30 Functional dyspepsia L20.9 Atopic dermatitis, unspecified J30.9 Allergic rhinitis, unspecified J45.909 Unspecified asthma, uncomplicated R53.83 Other fatigue L81.8 Other specified disorders of pigmentation E55.9 Vitamin D deficiency, unspecified R00.2 Palpitations N20.0 Calculus of kidney R31.9 Hematuria, unspecified 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 R09.81 Nasal congestion R06.02 Shortness of breath Z79.891 intermediate frame tender (current) use of opiate analgesic Z01.818 Encounter for other preprocedural examination Office Visit 06/19/2018 9:00a [facility] Ken Hernandez E11.65 Type 2 diabetes Pamela Chavez mellitus with hyperglycemia I10 Essential (primary) hypertension M51.37 Other intervertebral disc degeneration, lumbosacral region E78.2 Mixed hyperlipidemia K21.0 Gastro-esophageal reflux disease with esophagitis R51 Headache Z79.891 intermediate frame tender (current) use of opiate analgesic Z98.84 Bariatric surgery status E66.01 Morbid (severe) obesity due to excess calories M79.605 Pain in left leg K30 Functional dyspepsia L20.9 Atopic dermatitis, unspecified J30.9 Allergic rhinitis, unspecified J45.909 Unspecified asthma, uncomplicated R53.83 Other fatigue L81.8 Other specified disorders of pigmentation E55.9 Vitamin D deficiency, unspecified R00.2 Palpitations N20.0 Calculus of kidney R31.9 Hematuria, unspecified 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 mellitus with hyperglycemia I10 Essential (primary) hypertension M51.37 Other intervertebral disc degeneration, lumbosacral region E78.2 Mixed hyperlipidemia K21.0 Gastro-esophageal reflux disease with esophagitis R51 Headache Z79.891 intermediate frame tender (current) use of opiate analgesic Z98.84 Bariatric surgery status E66.01 Morbid (severe) obesity due to excess calories M79.605 Pain in left leg K30 Functional dyspepsia L20.9 Atopic dermatitis, unspecified J30.9 Allergic rhinitis, unspecified J45.909 Unspecified asthma, uncomplicated R53.83 Other fatigue L81.8 Other specified disorders of pigmentation E55.9 Vitamin D deficiency, unspecified R00.2 Palpitations N20.0 Calculus of kidney R31.9 Hematuria, unspecified J02.9 Acute pharyngitis, unspecified J01.40 Acute pansinusitis, unspecified H66.93 Otitis media, unspecified, bilateral H92.03 Otalgia, bilateral 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 mellitus with hyperglycemia I10 Essential (primary) hypertension M51.37 Other intervertebral disc degeneration, lumbosacral region E78.2 Mixed hyperlipidemia K21.0 Gastro-esophageal reflux disease with esophagitis R51 Headache Z79.891 [facility] (current) use of opiate analgesic Z98.84 Bariatric surgery status E66.01 Morbid (severe) obesity due to excess calories M79.605 Pain in left leg K30 Functional dyspepsia L20.9 Atopic dermatitis, unspecified J30.9 Allergic rhinitis, unspecified J45.909 Unspecified asthma, uncomplicated R53.83 Other fatigue L81.8 Other specified disorders of pigmentation E55.9 Vitamin D deficiency, unspecified R00.2 Palpitations N20.0 Calculus of kidney R31.9 Hematuria, unspecified J02.9 Acute pharyngitis, unspecified J01.40 Acute pansinusitis, unspecified H66.93 Otitis media, unspecified, bilateral H92.03 Otalgia, bilateral 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 R09.81 Nasal congestion R06.02 Shortness of breath Office Visit 04/14/2018 11:00a [facility] Ken Hernandez E11.65 Type 2 diabetes Pamela Chavez mellitus with hyperglycemia I10 Essential (primary) hypertension M51.37 Other intervertebral disc degeneration, lumbosacral region E78.2 Mixed hyperlipidemia K21.0 Gastro-esophageal reflux disease with esophagitis R51 Headache Z79.891 intermediate frame tender (current) use of opiate analgesic Z68.33 Body mass index (BMI) 33.0-33.9, adult Z98.84 Bariatric surgery status E66.01 Morbid (severe) obesity due to excess calories M79.605 Pain in left leg K30 Functional dyspepsia L20.9 Atopic dermatitis, unspecified J30.9 Allergic rhinitis, unspecified J45.909 Unspecified asthma, uncomplicated R53.83 Other fatigue L81.8 Other specified disorders of pigmentation E55.9 Vitamin D deficiency, unspecified R00.2 Palpitations N20.0 Calculus of kidney R31.9 Hematuria, unspecified J02.9 Acute pharyngitis, unspecified J01.40 Acute pansinusitis, unspecified H66.93 Otitis media, unspecified, bilateral H92.03 Otalgia, bilateral Z00.01 Encounter for general adult medical exam w abnormal findings 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 R09.81 Nasal congestion R06.02 Shortness of breath Office Visit 04/04/2018 10:00a [facility] Ken Hernandez E11.65 Type 2 diabetes Pamela Chavez mellitus with hyperglycemia I10 Essential (primary) hypertension M51.37 Other intervertebral disc degeneration, lumbosacral region E78.2 Mixed hyperlipidemia K21.0 Gastro-esophageal reflux disease with esophagitis R51 Headache Z79.891 intermediate frame tender (current) use of opiate analgesic Z98.84 Bariatric surgery status E66.01 Morbid (severe) obesity due to excess calories M79.605 Pain in left leg K30 Functional dyspepsia L20.9 Atopic dermatitis, unspecified J45.909 Unspecified asthma, uncomplicated J30.9 Allergic rhinitis, unspecified R53.83 Other fatigue L81.8 Other specified disorders of pigmentation E55.9 Vitamin D deficiency, unspecified R00.2 Palpitations N20.0 Calculus of kidney R31.9 Hematuria, unspecified 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 J02.9 Acute pharyngitis, unspecified J01.40 Acute pansinusitis, unspecified H66.93 Otitis media, unspecified, bilateral H92.03 Otalgia, bilateral Office Visit 03/13/2018 2:00p [facility] DavidKen barakat E11.65 Type 2 diabetes Pamela Chavez mellitus with hyperglycemia I10 Essential (primary) hypertension M51.37 Other intervertebral disc degeneration, lumbosacral region E78.2 Mixed hyperlipidemia K21.0 Gastro-esophageal reflux disease with esophagitis R51 Headache Z79.891 intermediate frame tender (current) use of opiate analgesic Z98.84 Bariatric surgery status E66.01 Morbid (severe) obesity due to excess calories M79.605 Pain in left leg K30 Functional dyspepsia L20.9 Atopic dermatitis, unspecified J45.909 Unspecified asthma, uncomplicated J30.9 Allergic rhinitis, unspecified R53.83 Other fatigue L81.8 Other specified disorders of pigmentation E55.9 Vitamin D deficiency, unspecified R00.2 Palpitations N20.0 Calculus of kidney R31.9 Hematuria, unspecified 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 J00 Acute nasopharyngitis [common cold] H92.02 Otalgia, left ear Office Visit 02/11/2018 1:15p [facility] David, Chuyitawiliam E11.65 Type 2 diabetes Pamela Chavez mellitus with hyperglycemia I10 Essential (primary) hypertension M51.37 Other intervertebral disc degeneration, lumbosacral region E78.2 Mixed hyperlipidemia K21.0 Gastro-esophageal reflux disease with esophagitis R51 Headache Z79.891 intermediate frame tender (current) use of opiate analgesic Z98.84 Bariatric surgery status E66.01 Morbid (severe) obesity due to excess calories M79.605 Pain in left leg K30 Functional dyspepsia L20.9 Atopic dermatitis, unspecified J45.909 Unspecified asthma, uncomplicated J30.9 Allergic rhinitis, unspecified R53.83 Other fatigue L81.8 Other specified disorders of pigmentation E55.9 Vitamin D deficiency, unspecified R00.2 Palpitations N20.0 Calculus of kidney R31.9 Hematuria, unspecified Office Visit 01/09/2018 2:00p [facility] Ken Hernandez R09.81 Nasal congestion M.D. R06.02 Shortness of breath R05 Cough J20.9 Acute bronchitis, unspecified H66.93 Otitis media, unspecified, bilateral J01.40 Acute pansinusitis, unspecified N20.0 Calculus of kidney R00.2 Palpitations E55.9 Vitamin D deficiency, unspecified L81.8 Other specified disorders of pigmentation R53.83 Other fatigue J30.2 Other seasonal allergic rhinitis J45.909 Unspecified asthma, uncomplicated L20.9 Atopic dermatitis, unspecified K30 Functional dyspepsia M79.605 Pain in left leg E66.01 Morbid (severe) obesity due to excess calories Z98.84 Bariatric surgery status Z79.891 intermediate frame tender (current) use of opiate analgesic R51 Headache K21.0 Gastro-esophageal reflux disease with esophagitis E78.2 Mixed hyperlipidemia M51.37 Other intervertebral disc degeneration, lumbosacral region I10 Essential (primary) hypertension E11.65 Type 2 diabetes mellitus with hyperglycemia Office Visit 12/10/2017 9:15a [facility] Ken Hernandez E11.65 Type 2 diabetes Pamela Chavez mellitus with hyperglycemia I10 Essential (primary) hypertension M51.37 Other intervertebral disc degeneration, lumbosacral region E78.2 Mixed hyperlipidemia K21.0 Gastro-esophageal reflux disease with esophagitis R51 Headache Z79.891 [facility] (current) use of opiate analgesic Z98.84 Bariatric surgery status E66.01 Morbid (severe) obesity due to excess calories M79.605 Pain in left leg K30 Functional dyspepsia L20.9 Atopic dermatitis, unspecified J45.909 Unspecified asthma, uncomplicated J30.2 Other seasonal allergic rhinitis R53.83 Other fatigue L81.8 Other specified disorders of pigmentation E55.9 Vitamin D deficiency, unspecified R00.2 Palpitations N83.202 Unspecified ovarian cyst, left side R01.1 Cardiac murmur, unspecified N20.0 Calculus of kidney J01.40 Acute pansinusitis, unspecified H66.93 Otitis media, unspecified, bilateral J20.9 Acute bronchitis, unspecified R05 Cough R06.02 Shortness of breath R09.81 Nasal congestion Office Visit 11/07/2017 10:15a [facility] DavidKen barakat E11.65 Type 2 diabetes Pamela Chavez mellitus with hyperglycemia I10 Essential (primary) hypertension M51.37 Other intervertebral disc degeneration, lumbosacral region E78.2 Mixed hyperlipidemia K21.0 Gastro-esophageal reflux disease with esophagitis R51 Headache Z79.891 intermediate frame tender (current) use of opiate analgesic Z98.84 Bariatric surgery status E66.01 Morbid (severe) obesity due to excess calories M79.605 Pain in left leg K30 Functional dyspepsia L20.9 Atopic dermatitis, unspecified J45.909 Unspecified asthma, uncomplicated J30.2 Other seasonal allergic rhinitis R53.83 Other fatigue L81.8 Other specified disorders of pigmentation E55.9 Vitamin D deficiency, unspecified R00.2 Palpitations N83.202 Unspecified ovarian cyst, left side R10.32 Left lower quadrant pain R01.1 Cardiac murmur, unspecified N20.0 Calculus of kidney Office Visit 10/10/2017 9:15a [facility] DavidKen barakat E11.65 Type 2 diabetes Batsheva Chavez. mellitus with hyperglycemia I10 Essential (primary) hypertension M51.37 Other intervertebral disc degeneration, lumbosacral region E78.2 Mixed hyperlipidemia K21.0 Gastro-esophageal reflux disease with esophagitis R51 Headache Z79.891 intermediate frame tender (current) use of opiate analgesic Z98.84 Bariatric surgery status E66.01 Morbid (severe) obesity due to excess calories M79.605 Pain in left leg K30 Functional dyspepsia L20.9 Atopic dermatitis, unspecified J45.909 Unspecified asthma, uncomplicated J30.2 Other seasonal allergic rhinitis R53.83 Other fatigue L81.8 Other specified disorders of pigmentation E55.9 Vitamin D deficiency, unspecified R00.2 Palpitations Office Visit 10/01/2017 2:15p [facility] David Chuyitawiliam E11.65 Type 2 diabetes Batsheva Chavez. mellitus with hyperglycemia I10 Essential (primary) hypertension M51.37 Other intervertebral disc degeneration, lumbosacral region E78.2 Mixed hyperlipidemia K21.0 Gastro-esophageal reflux disease with esophagitis R51 Headache Z79.891 intermediate frame tender (current) use of opiate analgesic Z98.84 Bariatric surgery status E66.01 Morbid (severe) obesity due to excess calories M79.605 Pain in left leg K30 Functional dyspepsia L20.9 Atopic dermatitis, unspecified J45.909 Unspecified asthma, uncomplicated J30.2 Other seasonal allergic rhinitis R53.83 Other fatigue L81.8 Other specified disorders of pigmentation E55.9 Vitamin D deficiency, unspecified R00.2 Palpitations Office Visit 09/26/2017 9:00a [facility] Ken Hernandez E11.65 Type 2 diabetes Batsheva Chavez. mellitus with hyperglycemia I10 Essential (primary) hypertension M51.37 Other intervertebral disc degeneration, lumbosacral region E78.2 Mixed hyperlipidemia K21.0 Gastro-esophageal reflux disease with esophagitis R51 Headache Z79.891 intermediate frame tender (current) use of opiate analgesic Z98.84 Bariatric surgery status E66.01 Morbid (severe) obesity due to excess calories M79.605 Pain in left leg K30 Functional dyspepsia L20.9 Atopic dermatitis, unspecified J45.909 Unspecified asthma, uncomplicated J30.2 Other seasonal allergic rhinitis R53.83 Other fatigue L81.8 Other specified disorders of pigmentation E55.9 Vitamin D deficiency, unspecified Office Visit 09/05/2017 10:45a [facility] David, Chuyitawiliam E11.65 Type 2 diabetes Batsheva Chavez. mellitus with hyperglycemia I10 Essential (primary) hypertension M51.37 Other intervertebral disc degeneration, lumbosacral region E78.2 Mixed hyperlipidemia K21.0 Gastro-esophageal reflux disease with esophagitis R51 Headache Z79.891 [facility] (current) use of opiate analgesic Z98.84 Bariatric surgery status E66.01 Morbid (severe) obesity due to excess calories M79.605 Pain in left leg K30 Functional dyspepsia L20.9 Atopic dermatitis, unspecified J45.909 Unspecified asthma, uncomplicated J30.2 Other seasonal allergic rhinitis R53.83 Other fatigue L81.8 Other specified disorders of pigmentation E55.9 Vitamin D deficiency, unspecified Office Visit 08/12/2017 9:00a [facility] Ender Aleks E11.65 Type 2 diabetes CENTER DIRECTOR mellitus with hyperglycemia I10 Essential (primary) hypertension M51.37 Other intervertebral disc degeneration, lumbosacral region E78.2 Mixed hyperlipidemia Office Visit 07/25/2017 9:00a [facility] Ken Hernandez E11.65 Type 2 diabetes Batsheva Chavez. mellitus with hyperglycemia I10 Essential (primary) hypertension M51.37 Other intervertebral disc degeneration, lumbosacral region E78.2 Mixed hyperlipidemia K21.0 Gastro-esophageal reflux disease with esophagitis R51 Headache Z79.891 intermediate frame tender (current) use of opiate analgesic Z98.84 Bariatric surgery status E66.01 Morbid (severe) obesity due to excess calories M79.605 Pain in left leg K30 Functional dyspepsia L20.9 Atopic dermatitis, unspecified J45.909 Unspecified asthma, uncomplicated J30.2 Other seasonal allergic rhinitis R53.83 Other fatigue L81.8 Other specified disorders of pigmentation E55.9 Vitamin D deficiency, unspecified Z23 Encounter for immunization Office Visit 07/11/2017 3:45p [facility] David Chuyitawiliam E11.65 Type 2 diabetes Batsheva Chavez. mellitus with hyperglycemia I10 Essential (primary) hypertension M51.37 Other intervertebral disc degeneration, lumbosacral region E78.2 Mixed hyperlipidemia K21.0 Gastro-esophageal reflux disease with esophagitis R51 Headache Z79.891 intermediate frame tender (current) use of opiate analgesic Z98.84 Bariatric surgery status E66.01 Morbid (severe) obesity due to excess calories M79.605 Pain in left leg K30 Functional dyspepsia L20.9 Atopic dermatitis, unspecified J45.909 Unspecified asthma, uncomplicated J30.2 Other seasonal allergic rhinitis R53.83 Other fatigue L81.8 Other specified disorders of pigmentation E55.9 Vitamin D deficiency, unspecified Office Visit 06/27/2017 9:45a [facility] Ken Hernandez E11.65 Type 2 diabetes Batsheva Chvaez. mellitus with hyperglycemia I10 Essential (primary) hypertension M51.37 Other intervertebral disc degeneration, lumbosacral region E78.2 Mixed hyperlipidemia K21.0 Gastro-esophageal reflux disease with esophagitis R51 Headache Z79.891 intermediate frame tender (current) use of opiate analgesic Z98.84 Bariatric surgery status E66.01 Morbid (severe) obesity due to excess calories M79.605 Pain in left leg K30 Functional dyspepsia L20.9 Atopic dermatitis, unspecified J45.909 Unspecified asthma, uncomplicated J30.2 Other seasonal allergic rhinitis R53.83 Other fatigue L81.8 Other specified disorders of pigmentation E55.9 Vitamin D deficiency, unspecified Office Visit 06/13/2017 10:00a [facility] Aleks Handley E11.65 Type 2 diabetes CENTER DIRECTOR mellitus with hyperglycemia I10 Essential (primary) hypertension M51.37 Other intervertebral disc degeneration, lumbosacral region R51 Headache Z79.891 intermediate frame tender (current) use of opiate analgesic E78.2 Mixed hyperlipidemia K21.0 Gastro-esophageal reflux disease with esophagitis Office Visit 05/29/2017 2:45p [facility] DavidKen barakat E11.65 Type 2 diabetes Batsheva Chavez. mellitus with hyperglycemia I10 Essential (primary) hypertension M51.37 Other intervertebral disc degeneration, lumbosacral region R51 Headache Z79.891 intermediate frame tender (current) use of opiate analgesic E78.2 Mixed hyperlipidemia K21.0 Gastro-esophageal reflux disease with esophagitis Z98.84 Bariatric surgery status E66.01 Morbid (severe) obesity due to excess calories M79.605 Pain in left leg K30 Functional dyspepsia L20.9 Atopic dermatitis, unspecified J45.909 Unspecified asthma, uncomplicated J30.2 Other seasonal allergic rhinitis R53.83 Other fatigue L81.8 Other specified disorders of pigmentation E55.9 Vitamin D deficiency, unspecified J01.40 Acute pansinusitis, unspecified R06.02 Shortness of breath R05 Cough R09.81 Nasal congestion J20.9 Acute bronchitis, unspecified Office Visit 05/15/2017 10:00a [facility] Aleks Handley E11.65 Type 2 diabetes CENTER DIRECTOR mellitus with hyperglycemia I10 Essential (primary) hypertension M51.37 Other intervertebral disc degeneration, lumbosacral region R51 Headache Z79.891 intermediate frame tender (current) use of opiate analgesic Office Visit 04/29/2017 3:15p [facility] Alesk Handley E11.65 Type 2 diabetes CENTER DIRECTOR mellitus with hyperglycemia I10 Essential (primary) hypertension M51.37 Other intervertebral disc degeneration, lumbosacral region R51 Headache Office Visit 03/12/2017 9:00a [facility] Ken Hernandez Z00.01 Encounter for Pamela Chavez general adult medical exam w abnormal findings E11.65 Type 2 diabetes mellitus with hyperglycemia I10 Essential (primary) hypertension E78.2 Mixed hyperlipidemia M51.37 Other intervertebral disc degeneration, lumbosacral region K21.0 Gastro-esophageal reflux disease with esophagitis Z98.84 Bariatric surgery status E66.01 Morbid (severe) obesity due to excess calories M79.605 Pain in left leg K30 Functional dyspepsia Z68.33 Body mass index (BMI) 33.0-33.9, adult L20.9 Atopic dermatitis, unspecified J45.909 Unspecified asthma, uncomplicated J30.2 Other seasonal allergic rhinitis R53.83 Other fatigue L81.8 Other specified disorders of pigmentation E55.9 Vitamin D deficiency, unspecified Z00.01 Encounter for general adult medical exam w abnormal findings Office Visit 02/20/2017 9:15a [facility] Ken Hernandez E11.65 Type 2 diabetes Pamela Chavez mellitus with hyperglycemia I10 Essential (primary) hypertension E78.2 Mixed hyperlipidemia M51.37 Other intervertebral disc degeneration, lumbosacral region K21.0 Gastro-esophageal reflux disease with esophagitis Z98.84 Bariatric surgery status E66.01 Morbid (severe) obesity due to excess calories M79.605 Pain in left leg K30 Functional dyspepsia L20.9 Atopic dermatitis, unspecified J45.909 Unspecified asthma, uncomplicated J30.2 Other seasonal allergic rhinitis R53.83 Other fatigue L81.8 Other specified disorders of pigmentation E55.9 Vitamin D deficiency, unspecified J20.9 Acute bronchitis, unspecified J01.40 Acute pansinusitis, unspecified H66.93 Otitis media, unspecified, bilateral R05 Cough R06.02 Shortness of breath R09.81 Nasal congestion R50.9 Fever, unspecified Office Visit 02/05/2017 3:15p [facility] E11.65 Type 2 diabetes M., M.D. mellitus with hyperglycemia I10 Essential (primary) hypertension E78.2 Mixed hyperlipidemia M51.37 Other intervertebral disc degeneration, lumbosacral region K21.0 Gastro-esophageal reflux disease with esophagitis Z98.84 Bariatric surgery status E66.01 Morbid (severe) obesity due to excess calories M79.605 Pain in left leg K30 Functional dyspepsia L20.9 Atopic dermatitis, unspecified J45.909 Unspecified asthma, uncomplicated J30.2 Other seasonal allergic rhinitis R53.83 Other fatigue L81.8 Other specified disorders of pigmentation E55.9 Vitamin D deficiency, unspecified J20.9 Acute bronchitis, unspecified J01.40 Acute pansinusitis, unspecified H66.93 Otitis media, unspecified, bilateral R05 Cough R06.02 Shortness of breath R09.81 Nasal congestion R50.9 Fever, unspecified Office Visit 01/25/2017 2:00p [facility] Type 2 diabetes M., M.D. mellitus with hyperglycemia I10 Essential (primary) hypertension E78.2 Mixed hyperlipidemia M51.37 Other intervertebral disc degeneration, lumbosacral region K21.0 Gastro-esophageal reflux disease with esophagitis Z98.84 Bariatric surgery status E66.01 Morbid (severe) obesity due to excess calories M79.605 Pain in left leg K30 Functional dyspepsia L20.9 Atopic dermatitis, unspecified J45.909 Unspecified asthma, uncomplicated J30.2 Other seasonal allergic rhinitis R53.83 Other fatigue L81.8 Other specified disorders of pigmentation E55.9 Vitamin D deficiency, unspecified Office Visit 12/12/2016 10:15a [facility] Aleks Handley J01.80 Other acute CENTER DIRECTOR sinusitis E11.65 Type 2 diabetes mellitus with hyperglycemia I10 Essential (primary) hypertension E78.2 Mixed hyperlipidemia M51.37 Other intervertebral disc degeneration, lumbosacral region K21.0 Gastro-esophageal reflux disease with esophagitis Office Visit 10/26/2016 10:00a [facility] Ken Hernandez E11.65 Type 2 diabetes Batsheva Chavez. mellitus with hyperglycemia I10 Essential (primary) hypertension E78.2 Mixed hyperlipidemia M51.37 Other intervertebral disc degeneration, lumbosacral region K21.0 Gastro-esophageal reflux disease with esophagitis Z98.84 Bariatric surgery status E66.01 Morbid (severe) obesity due to excess calories M79.605 Pain in left leg K30 Functional dyspepsia L20.9 Atopic dermatitis, unspecified J45.909 Unspecified asthma, uncomplicated J30.2 Other seasonal allergic rhinitis R53.83 Other fatigue L81.8 Other specified disorders of pigmentation E55.9 Vitamin D deficiency, unspecified Office Visit 09/24/2016 9:00a [facility] Aleks Handley E11.65 Type 2 diabetes CENTER DIRECTOR mellitus with hyperglycemia I10 Essential (primary) hypertension E78.2 Mixed hyperlipidemia M51.37 Other intervertebral disc degeneration, lumbosacral region K21.0 Gastro-esophageal reflux disease with esophagitis Z98.84 Bariatric surgery status Office Visit 09/17/2016 9:45a [facility] Aleks Handley E11.65 Type 2 diabetes CENTER DIRECTOR mellitus with hyperglycemia I10 Essential (primary) hypertension E78.2 Mixed hyperlipidemia M51.37 Other intervertebral disc degeneration, lumbosacral region K21.0 Gastro-esophageal reflux disease with esophagitis E66.01 Morbid (severe) obesity due to excess calories Z98.84 Bariatric surgery status R35.8 Other polyuria Office Visit 08/02/2016 2:45p [facility] Ken Hernandez E11.65 Type 2 diabetes Batsheva Chavez. mellitus with hyperglycemia I10 Essential (primary) hypertension E78.2 Mixed hyperlipidemia M54.5 Low back pain M51.37 Other intervertebral disc degeneration, lumbosacral region M79.605 Pain in left leg K21.0 Gastro-esophageal reflux disease with esophagitis K30 Functional dyspepsia L20.9 Atopic dermatitis, unspecified J45.909 Unspecified asthma, uncomplicated J30.2 Other seasonal allergic rhinitis R53.83 Other fatigue L81.8 Other specified disorders of pigmentation E55.9 Vitamin D deficiency, unspecified Z98.84 Bariatric surgery status E66.01 Morbid (severe) obesity due to excess calories Office Visit 06/21/2016 11:30a [facility] DavidKen barakat E11.65 Type 2 diabetes M., M.D. mellitus with hyperglycemia I10 Essential (primary) hypertension E78.2 Mixed hyperlipidemia M54.5 Low back pain M51.37 Other intervertebral disc degeneration, lumbosacral region M79.605 Pain in left leg K21.0 Gastro-esophageal reflux disease with esophagitis K30 Functional dyspepsia L20.9 Atopic dermatitis, unspecified J45.909 Unspecified asthma, uncomplicated J30.2 Other seasonal allergic rhinitis R53.83 Other fatigue L81.8 Other specified disorders of pigmentation E55.9 Vitamin D deficiency, unspecified Z98.84 Bariatric surgery status E66.01 Morbid (severe) obesity due to excess calories Office Visit 05/08/2016 3:15p [facility] DavidKen barakat E11.65 Type 2 diabetes M., M.D. mellitus with hyperglycemia I10 Essential (primary) hypertension E78.2 Mixed hyperlipidemia M54.5 Low back pain M51.37 Other intervertebral disc degeneration, lumbosacral region M79.605 Pain in left leg K21.0 Gastro-esophageal reflux disease with esophagitis K30 Functional dyspepsia L20.9 Atopic dermatitis, unspecified J45.909 Unspecified asthma, uncomplicated J30.2 Other seasonal allergic rhinitis R53.83 Other fatigue L81.8 Other specified disorders of pigmentation E55.9 Vitamin D deficiency, unspecified Z98.84 Bariatric surgery status E66.01 Morbid (severe) obesity due to excess calories Office Visit 03/20/2016 2:15p [facility] DavidKen barakat E11.65 Type 2 diabetes M., M.D. mellitus with hyperglycemia I10 Essential (primary) hypertension E78.2 Mixed hyperlipidemia M54.5 Low back pain M51.37 Other intervertebral disc degeneration, lumbosacral region M79.605 Pain in left leg K21.0 Gastro-esophageal reflux disease with esophagitis K30 Functional dyspepsia L20.9 Atopic dermatitis, unspecified J45.909 Unspecified asthma, uncomplicated J30.2 Other seasonal allergic rhinitis R53.83 Other fatigue L81.8 Other specified disorders of pigmentation E55.9 Vitamin D deficiency, unspecified Z98.84 Bariatric surgery status E66.01 Morbid (severe) obesity due to excess calories Office Visit 02/17/2016 9:45a [facility] E11.65 Type 2 diabetes Pamela Chavez mellitus with hyperglycemia I10 Essential (primary) hypertension E78.2 Mixed hyperlipidemia M54.5 Low back pain M51.37 Other intervertebral disc degeneration, lumbosacral region M79.605 Pain in left leg K21.0 Gastro-esophageal reflux disease with esophagitis K30 Functional dyspepsia L20.9 Atopic dermatitis, unspecified J45.909 Unspecified asthma, uncomplicated J30.2 Other seasonal allergic rhinitis E66.01 Morbid (severe) obesity due to excess calories R53.83 Other fatigue L81.8 Other specified disorders of pigmentation E55.9 Vitamin D deficiency, unspecified Z98.84 Bariatric surgery status Office Visit 01/12/2016 2:00p [facility] Z01.818 Encounter for other Pamela Chavez preprocedural examination E11.65 Type 2 diabetes mellitus with hyperglycemia I10 Essential (primary) hypertension E78.2 Mixed hyperlipidemia M54.5 Low back pain M51.37 Other intervertebral disc degeneration, lumbosacral region M79.605 Pain in left leg K21.0 Gastro-esophageal reflux disease with esophagitis K30 Functional dyspepsia L20.9 Atopic dermatitis, unspecified J45.909 Unspecified asthma, uncomplicated J30.2 Other seasonal allergic rhinitis E66.01 Morbid (severe) obesity due to excess calories R53.83 Other fatigue L81.8 Other specified disorders of pigmentation E55.9 Vitamin D deficiency, unspecified J20.9 Acute bronchitis, unspecified J01.40 Acute pansinusitis, unspecified H66.93 Otitis media, unspecified, bilateral R05 Cough R06.02 Shortness of breath R09.81 Nasal congestion Office Visit 11/24/2015 9:00a [facility] E11.65 Type 2 diabetes Batsheva Chavez. mellitus with hyperglycemia I10 Essential (primary) hypertension E78.2 Mixed hyperlipidemia M54.5 Low back pain M51.37 Other intervertebral disc degeneration, lumbosacral region M79.605 Pain in left leg K21.0 Gastro-esophageal reflux disease with esophagitis K30 Functional dyspepsia L20.9 Atopic dermatitis, unspecified J45.909 Unspecified asthma, uncomplicated J30.2 Other seasonal allergic rhinitis E66.01 Morbid (severe) obesity due to excess calories R53.83 Other fatigue L81.8 Other specified disorders of pigmentation E55.9 Vitamin D deficiency, unspecified J20.9 Acute bronchitis, unspecified J01.40 Acute pansinusitis, unspecified H66.93 Otitis media, unspecified, bilateral R05 Cough R06.02 Shortness of breath R09.81 Nasal congestion Office Visit 10/24/2015 9:45a [facility] Ken Hernandez E11.65 Type 2 diabetes Pamela Chavez mellitus with hyperglycemia I10 Essential (primary) hypertension E78.2 Mixed hyperlipidemia M54.5 Low back pain M51.37 Other intervertebral disc degeneration, lumbosacral region M79.605 Pain in left leg K21.0 Gastro-esophageal reflux disease with esophagitis K30 Functional dyspepsia L20.9 Atopic dermatitis, unspecified J45.909 Unspecified asthma, uncomplicated J30.2 Other seasonal allergic rhinitis E66.01 Morbid (severe) obesity due to excess calories R53.83 Other fatigue L81.8 Other specified disorders of pigmentation E55.9 Vitamin D deficiency, unspecified Office Visit 10/17/2015 8:30a [facility] Ken Hernandez E11.65 Type 2 diabetes Pamela Chavez mellitus with hyperglycemia I10 Essential (primary) hypertension E78.2 Mixed hyperlipidemia M54.5 Low back pain M51.37 Other intervertebral disc degeneration, lumbosacral region M79.605 Pain in left leg K21.0 Gastro-esophageal reflux disease with esophagitis K30 Functional dyspepsia L20.9 Atopic dermatitis, unspecified J45.909 Unspecified asthma, uncomplicated J30.2 Other seasonal allergic rhinitis E66.01 Morbid (severe) obesity due to excess calories R53.83 Other fatigue L81.8 Other specified disorders of pigmentation Office Visit 10/14/2015 9:00a [facility] Ken Hernandez Z00.01 Encounter for Pamela Chavez general adult medical exam w abnormal findings E11.65 Type 2 diabetes mellitus with hyperglycemia I10 Essential (primary) hypertension E78.2 Mixed hyperlipidemia M54.5 Low back pain M51.37 Other intervertebral disc degeneration, lumbosacral region M79.605 Pain in left leg K21.0 Gastro-esophageal reflux disease with esophagitis K30 Functional dyspepsia L20.9 Atopic dermatitis, unspecified J45.909 Unspecified asthma, uncomplicated J30.2 Other seasonal allergic rhinitis E66.01 Morbid (severe) obesity due to excess calories R53.83 Other fatigue L81.8 Other specified disorders of pigmentation Plan of Treatment Future Appointment(s):02/19/2019 9:45 am - Ken Hernandez M.D. at [facility]01/22/2019 - Ken Hernandez M.D.E11.65 Type 2 diabetes mellitus with hyperglycemiaComments:DIET REVIEWED CONTINUE DIETWT LOSSF/U LAB FS qAC AND HS PRN F/U [id number] Essential (primary) hypertensionComments:CHECK BP TIW ( PRN)F/U LABDIET AND FLUID COUNSELING LOW SODIUM DIETWT LOSSF/U LABE78.2 Mixed hyperlipidemiaComments:DIET REVIEWED CONTINUE DIETWT LOSSF/U LAB FBWM51.37 Other intervertebral disc degeneration, lumbosacral regionComments:EXERCISE/ HEAT /MESSAGEAVOID HEAVY LIFTING WT LOSSTYLENOL OR MOTRIN PRN DUR KVHOHJJB81.0 Gastro-esophageal reflux disease with esophagitisComments:AVOID CAFFEINE, ETOH AND SPICY FOODSTUMS OR MYLANTA PRN CALL WITH PROBLEMS OR [id number] HeadacheComments:TYLENOL OR MOTRIN PRNZ98.84 Bariatric surgery statusComments:F/U WITH SURGERYF/U DIET [id number] Morbid (severe) obesity due to excess caloriesComments:S/P BARIATIC SURGERYWT CONTROL COUNCELLINGEXERCISE/DIET COUNCILLING F/U WITH BARIATIC CLINIC PRNM79.605 Pain in left legComments:TYLENOL OR MOTRIN PRN EXERCISE/HEAT/MESSAGE DUR [id number] Functional dyspepsiaComments:AVOID CAFFEINE, ETOH AND SPICY FOODSTUMS OR MYLANTA PRN CALL WITH PROBLEMS OR GUPZAOTET98.9 Atopic dermatitis, unspecifiedComments:SKIN CARE INSTRUCTIONS LOTION OR BABY OIL 2-3 APPLICATION PER DAYUSE MOISTURIZING SOAPAVOID PROLONGED WATER EXPOSUREAVOID USING HOT WATER IN GVYIVJG65.9 Allergic rhinitis, unspecifiedComments:INCREASE PO FLUID USE ANTIHISTAMINE PRN SECOND HAND SMOKING PAKRLNITQZ45.909 Unspecified asthma, uncomplicatedComments:MDI / NEBULIZER TX PRN AVOID EXPOSURE TO SMOKING OR YKBDPV83.83 Other fatigueComments:INCRFEASE PO FLUIDCOUNCELLING AND REASSURANCE RESTL81.8 Other specified disorders of pigmentationComments:OBSREVESKIN CAREE55.9 Vitamin D deficiency, unspecifiedComments:INCREASE EXPOSURE TO SUNREVIEW OF DIETR00.2 PalpitationsComments:EEOSVRUJOFSBHVIK63.0 Calculus of kidneyComments:CT 10/20 2017-0.2 cm calculus at the left rpyfrxG81.9 Hematuria, lxjzzzieetsW67.22 Fibroadenosis of left duivdiT51.81 Nasal congestionComments: INCREASE PO FLUIDTYLENOL OR MOTRIN PRNREST USE ANTIHISTAMINE PRNR06.02 Shortness of breathComments:OBSERVE AND HNTWAIJZH20.891 [facility] (current) use of opiate analgesicComments:REVIEWED MEDICATIONS AND DIRECTIONS WITH PATIENT DUR CHECKED
[2019-02-07 07:18] VITALS: BP 148/64
--- NOTE | 2019-02-07 07:25 | UC ---
Throat Pain/Nasal Dion HPI - HPI Summary HPI Summary: Per physician office specialist: "c/o sorethroat and temp of 101 that started last night. Denies coughing, earpain or sinus congestion" -has had strep in past. feels same but remebers pain being worse other times. + body aches. + nausea from gaagging. watches her 10 mo old twin grandchildren. ( adv to keep distance adn use mask if anywhere close to them). no rash - History of Current Complaint Chief Complaint: UCRespiratory Stated Complaint: ST Time Seen by Provider: 02/07/19 07:09 Hx Last Menstrual Period: 1999 Pain Intensity: 2 - Allergies/Home Medications Allergies/Adverse Reactions: Allergies Allergy/AdvReac Type Severity Reaction Status Date / Time pregabalin [From Lyrica] Allergy Intermediate Eyes shake Verified 02/07/19 07:18 PMH/Surg Hx/FS Hx/Imm Hx Previously Healthy: Yes - Surgical History Surgical History: Yes Surgery Procedure, Year, and Place: spinal fusion-2006. hysterectomy-1999. benign facial gland 2010. NUMEROUS TATTO REMOVALS, gastric sleeve-01/2016 - Family History Known Family History: Positive: Unknown, Hypertension, Diabetes - Social History Alcohol Use: None Substance Use Type: Prescribed Substance Use Comment - Amount & Last Used: PERCOCET AT BEDTIME Smoking Status (MU): Former Smoker Amount Used/How Often: 2 PPD X 20 YEARS Have You Smoked in the Last Year: No When Did the Patient Quit Smoking/Using Tobacco: 2004 - Immunization History Most Recent Influenza Vaccination: current Review of Systems All Other Systems Reviewed And Are Negative: Yes Constitutional: Positive: Fever, Fatigue Skin: Positive: Negative. Negative: Rash Eyes: Positive: Negative ENT: Positive: Sore Throat. Negative: Ear Ache Respiratory: Positive: Negative. Negative: Shortness Of Breath, Cough Cardiovascular: Positive: Negative - HR normally >100 for her she reports Gastrointestinal: Positive: Negative Genitourinary: Positive: Negative Motor: Positive: Negative Neurovascular: Positive: Negative Musculoskeletal: Positive: Negative Neurological: Positive: Negative Psychological: Positive: Negative Is Patient Immunocompromised?: No Physical Exam Triage Information Reviewed: Yes Appearance: Well-Nourished, Ill-Appearing - mild Vital Signs: Initial Vital Signs Temp 99 F 02/07/19 07:15 Pulse 129 02/07/19 07:15 Resp 16 02/07/19 07:15 BP 148/64 02/07/19 07:15 Pulse Ox 99 02/07/19 07:15 Vital Signs Reviewed: Yes Eye Exam: Normal ENT: Positive: Pharyngeal erythema, TMs normal, Tonsillar exudate - no paritonsillar abscess seen w/ good exam. no "hot potato" voice., Uvula midline. Negative: Nasal congestion, Tonsillar swelling, Hoarse voice, Sinus tenderness Neck exam: Normal Neck: Positive: Supple, Nontender, No Lymphadenopathy Respiratory Exam: Normal Respiratory: Positive: Lungs clear, Normal breath sounds, No respiratory distress, No accessory muscle use. Negative: Crackles, Rhonchi, Stridor, Wheezing Cardiovascular Exam: Normal Cardiovascular: Positive: Tachycardia - heart rate 110 on my PE Abdominal Exam: Normal Abdomen Description: Positive: Soft Musculoskeletal Exam: Normal Neurological Exam: Normal Psychological Exam: Normal Skin Exam: Normal Throat Pain/Nasal Course/Dx - Course Course Of Treatment: Rapid strep + -reports that her heart rate normally runs high. -cautious around grandchildren bc of strep - keep distance/mask if necessary. -F/U sooner if sx worsen - Differential Dx/Diagnosis Differential Diagnosis/HQI/PQRI: Laryngitis, Peritonsillar Abscess, Pharyngitis , Tonsillitis, URI Provider Diagnosis: Strep pharyngitis Discharge - Sign-Out/Discharge Documenting (check all that apply): Patient Departure All imaging exams completed and their final reports reviewed: No Studies - Discharge Plan Condition: Stable Disposition: HOME Prescriptions: Amoxicillin/Clavulanate TAB* [Augmentin TAB 875*] 875 mg PO BID #20 tab Patient Education Materials: Strep Throat (DC) Referrals: Ken Hernandez MD [Primary Care Provider] - 1 Week Additional Instructions: Make sure to take a probiotic daily while on antibiotics to help prevent a potential complication of antibiotic use called c diff. Some well known brands that can be found OTC are florastor, Jolancer and [employer]. Make sure to complete the entire prescription unless advised otherwise by your health care provider - Billing Disposition and Condition Condition: STABLE Disposition: Home
== END 2019-02-07 07:44 | disposition home or self-care (01) ==
LOC: UCCORT 07:04
DX: J02.0 Streptococcal pharyngitis (principal); Z87.891 Personal history of nicotine dependence; Z88.8 Allergy status to other drugs, medicaments and biological substances
CPT/HCPCS: 87651; 99212; G0463

== ENCOUNTER 2019-07-19 12:22 | Emergency (ER) | payer BC, MEDICARE ==
[2019-07-19 13:32] VITALS: BP 122/81
--- NOTE | 2019-07-19 13:57 | UC ---
Throat Pain/Nasal Dion HPI - HPI Summary HPI Summary: Pt presents with c/o sudden onset of burning, painful throat and throat. Pt also reports white coating on tongue. Pt denies recent antibiotic use, steroid use or HIV +. Pt reports that she is a type 2 diabetic that is managed by diet. Pt states that she has not had any problems with her blood glucose in a long time. - History of Current Complaint Chief Complaint: UCGeneralIllness Stated Complaint: SORE THROAT TONGUE Time Seen by Provider: 07/19/19 13:22 Hx Obtained From: Patient Hx Last Menstrual Period: 1999 ?: No Onset/Duration: Sudden Onset, Lasting Days, Still Present Severity: Moderate Pain Intensity: 5 Cough: None Associated Signs & Symptoms: Positive: Dysphagia - Epiglottits Risk Factors Epiglottis Risk Factors: Sudden Onset - Allergies/Home Medications Allergies/Adverse Reactions: Allergies Allergy/AdvReac Type Severity Reaction Status Date / Time pregabalin [From Lyrica] Allergy Intermediate Eyes shake Verified 07/19/19 13:29 PMH/Surg Hx/FS Hx/Imm Hx Previously Healthy: Yes Endocrine History: Diabetes - Surgical History Surgical History: Yes Surgery Procedure, Year, and Place: spinal fusion-2006. hysterectomy-1999. benign facial gland 2010. NUMEROUS TATTO REMOVALS, gastric sleeve-01/2016 - Family History Known Family History: Positive: Unknown, Hypertension, Diabetes - Social History Occupation: Unemployed Lives: With Family Alcohol Use: None Substance Use Type: None Substance Use Comment - Amount & Last Used: PERCOCET AT BEDTIME Smoking Status (MU): Former Smoker Amount Used/How Often: 2 PPD X 20 YEARS Have You Smoked in the Last Year: No When Did the Patient Quit Smoking/Using Tobacco: 2004 - Immunization History Most Recent Influenza Vaccination: current Review of Systems All Other Systems Reviewed And Are Negative: Yes Constitutional: Positive: Negative Skin: Positive: Negative Eyes: Positive: Negative ENT: Positive: Sore Throat, Other - "white" tongue, tongue pain Respiratory: Positive: Negative Cardiovascular: Positive: Negative Gastrointestinal: Positive: Negative Genitourinary: Positive: Negative Motor: Positive: Negative Neurovascular: Positive: Negative Musculoskeletal: Positive: Negative Neurological: Positive: Negative Psychological: Positive: Negative Is Patient Immunocompromised?: No Physical Exam Triage Information Reviewed: Yes Appearance: Well-Appearing Vital Signs: Initial Vital Signs Temp 98.6 F 07/19/19 13:29 Pulse 91 07/19/19 13:29 Resp 14 07/19/19 13:29 BP 122/81 07/19/19 13:29 Pulse Ox 98 07/19/19 13:29 Vital Signs Reviewed: Yes Eye Exam: Normal ENT: Positive: Other - lateral an dmedial sides of tongue white, raised. Unable to scrape white off tongue. Dental Exam: Normal Neck exam: Normal Respiratory Exam: Normal Respiratory: Positive: No respiratory distress Musculoskeletal Exam: Normal Neurological Exam: Normal Psychological Exam: Normal Skin Exam: Normal Throat Pain/Nasal Course/Dx - Course Course Of Treatment: I discussed my diagnosis with the pt and recommended that she follow up immediately with her PCP . Pt verbalized understanding and agreed to plan of care. - Differential Dx/Diagnosis Differential Diagnosis/HQI/PQRI: Tonsillitis, Other - geographic tongue Provider Diagnosis: Tongue abnormality, Sore throat Discharge ED - Sign-Out/Discharge Documenting (check all that apply): Patient Departure All imaging exams completed and their final reports reviewed: No Studies - Discharge Plan Condition: Stable Disposition: HOME Prescriptions: Fluconazole 100 MG TAB* [Diflucan 100 MG TAB*] 100 mg PO DAILY #2 tab Patient Education Materials: Pharyngitis (ED), Oral Candidiasis (ED) Referrals: Kne Hernandez MD [Primary Care Provider] - As Soon As Possible - Billing Disposition and Condition Condition: STABLE Disposition: Home
== END 2019-07-19 14:01 | disposition home or self-care (01) ==
LOC: UCCORT 12:22
DX: J02.9 Acute pharyngitis, unspecified (principal); K14.9 Disease of tongue, unspecified; E11.9 Type 2 diabetes mellitus without complications; Z88.8 Allergy status to other drugs, medicaments and biological substances; Z87.891 Personal history of nicotine dependence
CPT/HCPCS: 87070; 99212; G0463